=== PATIENT | female | born 1935 | race Caucasian/White ===

== ENCOUNTER 2017-01-07 08:53 | Inpatient (IN) | payer MEDICARE, BC ==
[~2017-01-07] VITALS: Ht 177.8 cm; Wt 98.9 kg
[2017-01-07] VITALS (7 sets, daily range): BP systolic 142–164; BP diastolic 71–80; PULSE 66–73; RESP 16–20; TEMP 97.6–98.2; O2SAT 95–99
[2017-01-07] MEDS ORDERED: SODIUM CHLOR 0.9% 1000 ML INJ 1,000 ML IV SCH (09:32)
[2017-01-07] MEDS ORDERED: KETOROLAC TROMETHAMINE 30 MG/ML (IVP) VIAL IVP ONE (09:45)
[2017-01-07] MEDS ORDERED: ONDANSETRON HCL 4 MG/2 ML VIAL IVP ONE (09:45)
[2017-01-07] MEDS ORDERED: ALUMINUM/MAGNESIUM/SIMETH 30 ML CUP PO ONE (09:45)
[2017-01-07] MEDS ORDERED: SODIUM CHLORIDE 0.9% FLUSH 10 ML FLUSH IV FLUSH PRN (09:45)
[2017-01-07] MEDS ORDERED: MORPHINE SULFATE 4 MG/ML INJ IV PUSH ONE (09:45)
[2017-01-07] MEDS ORDERED: LIDOCAINE VISCOUS 2% SOLN 15 ML UDC PO ONE (09:45)
[2017-01-07 09:51] LABS: AUTOMATED NEUTROPHIL # 5.6 TH/MM3 (1.8-7.7); BASOPHIL # 0.3 TH/MM3 (0-0.2); BASOPHIL % 3.8 % (0.0-2.0); EOSINOPHIL % 0.1 % (0.0-4.0); HEMATOCRIT 39.6 % (35.0-46.0); HEMO FLAGS DIFF FINAL; LYMPH % 14.8 % (9.0-44.0); LYMPHOCYTE # 1.1 TH/MM3 (1.0-4.8); MEAN CELL VOLUME 84.1 FL (80.0-100.0); MEAN CORPUSCULAR HEMOGLOBIN 27.4 PG (27.0-34.0); MEAN CORPUSCULAR HGB CONC 32.6 % (32.0-36.0); MONO % 6.7 % (0.0-8.0); NEUT % 74.6 % (16.0-70.0); PLATELET COUNT 197 TH/MM3 (150-450); RED BLOOD COUNT 4.71 MIL/MM3 (4.00-5.30); RED CELL DISTRIBUTION WIDTH 13.7 % (11.6-17.2); WHITE BLOOD COUNT 7.5 TH/MM3 (4.0-11.0)
[2017-01-07 09:53] LABS: BLOOD, URINE SMALL (NEG); GLUCOSE,URINE NEG (NEG); KETONE, URINE NEG (NEG); NITRITE,URINE NEG (NEG)
--- NOTE | 2017-01-07 10:01 | PD ---
HPI Chief Complaint: Abdominal Pain Time Seen by Provider: 09:09 Travel History International Travel<30 days: No Contact w/Intl Traveler<30days: No Traveled to known affect area: No History of Present Illness HPI 81-year-old female developed abdominal pain at about 9 PM last night. It was first located in the left upper quadrant and radiated to the right upper quadrant. She was unable to sleep. She has the ER. No similar prior pain has occurred. She thinks she may have had some potentially spoiled fish a day ago but no potentially culpable intake since. No fever or vomiting. BM normal. decreased appetite 2/2 pain. Pain is worse with palpation. Diaphoresis accompanied pain inititally. PFSH Past Medical History Medical History: Denies Significant Hx Tetanus Vaccination: Unknown Influenza Vaccination: Yes ?: Not Past Surgical History Appendectomy: Yes Hysterectomy: Yes Social History Alcohol Use: No Tobacco Use: No Substance Use: No Allergies-Medications (Allergen,Severity, Reaction): Coded Allergies: No Known Allergies (Unverified , 01/07/17) Reported Meds & Prescriptions Reported Meds & Active Scripts Active No Active Prescriptions or Reported Medications Review of Systems Except as stated in HPI: all other systems reviewed are Neg Physical Exam Narrative GENERAL: 81 yo F, WNWD, NAD, pleasant SKIN: Focused skin assessment warm/dry. HEAD: Atraumatic. Normocephalic. EYES: Pupils equal and round. No scleral icterus. No injection or drainage. ENT: No nasal bleeding or discharge. Mucous membranes pink and moist. NECK: Trachea midline. No JVD. CARDIOVASCULAR: Regular rate and rhythm. No murmur appreciated. RESPIRATORY: No accessory muscle use. Clear to auscultation. Breath sounds equal bilaterally. GASTROINTESTINAL:Soft. TTP upper abdomen. No rebound TTP. MUSCULOSKELETAL: No obvious deformities. No clubbing. No cyanosis. No edema. NEUROLOGICAL: Awake and alert. No obvious cranial nerve deficits. Motor grossly within normal limits. Normal speech. PSYCHIATRIC: Appropriate mood and affect; insight and judgment normal. Data Data Last Documented VS Vital Signs Date Time Temp Pulse Resp B/P Pulse Ox O2 Delivery O2 Flow Rate FiO2 01/07/17 11:09 66 20 164/80 96 Room Air 01/07/17 09:00 98.2 VS reviewed Orders Complete Blood Count With Diff (01/07/17 09:32) Comprehensive Metabolic Panel (01/07/17 09:32) Lipase (01/07/17 09:32) Urinalysis - C+S If Indicated (01/07/17 09:32) Ct Abd/Pel W Iv Contrast(Rout) (01/07/17 09:32) Iv Access Insert/Monitor (01/07/17 09:32) Ecg Monitoring (01/07/17 09:32) Oximetry (01/07/17 09:32) Morphine Inj (Morphine Inj) (01/07/17 09:45) Ondansetron Inj (Zofran Inj) (01/07/17 09:45) Sodium Chlor 0.9% 1000 Ml Inj (Ns 1000 M (01/07/17 09:32) Sodium Chloride 0.9% Flush (Ns Flush) (01/07/17 09:45) Ketorolac Inj (Toradol Inj) (01/07/17 09:45) Al-Mag Hy-Si 40-40-4 Mg/Ml Liq (Mag-Al P (01/07/17 09:45) Lidocaine 2% Viscous (Xylocaine 2% Visco (01/07/17 09:45) Iodixanol 320 Inj (Rad Ct) (Visipaque 32 (01/07/17 10:36) Piperacil-Tazo 3.375 Gm Premix (Zosyn 3. (01/07/17 11:00) Admit Order (Ed Use Only) (01/07/17 ) Vital Signs (Adult) Q4H (01/07/17 11:14) Diet Npo (01/07/17 Lunch) Activity Oob With Assistance (01/07/17 11:14) ^ Saline Lock (01/07/17 11:14) Notify Dr: Other (01/07/17 11:14) Ondansetron Inj (Zofran Inj) (01/07/17 11:15) Sodium Chloride 0.9% Flush (Ns Flush) (01/07/17 21:00) Sodium Chloride 0.9% Flush (Ns Flush) (01/07/17 11:15) Morphine Inj (Morphine Inj) (01/07/17 11:15) Mri Mrcp W/O Contrast (01/07/17 ) Labs Laboratory Tests Test 01/07/17 01/07/17 09:40 09:45 Urine Color DARK-YELLOW Urine Turbidity SLIGHT Urine pH 6.0 Urine Specific Shushan 1.032 Urine Protein 30 mg/dL Urine Glucose (UA) NEG mg/dL Urine Ketones NEG mg/dL Urine Occult Blood SMALL Urine Nitrite NEG Urine Bilirubin NEG Urine Leukocyte Esterase NEG Urine WBC 0-2 /hpf Urine Squamous Epithelial 0-5 /hpf Cells Urine Bacteria OCC /hpf Urine Mucus MOD /lpf Microscopic Urinalysis Comment CULT NOT INDICATED White Blood Count 7.5 TH/MM3 Red Blood Count 4.71 MIL/MM3 Hemoglobin 12.9 GM/DL Hematocrit 39.6 % Mean Corpuscular Volume 84.1 FL Mean Corpuscular Hemoglobin 27.4 PG Mean Corpuscular Hemoglobin 32.6 % Concent Red Cell Distribution Width 13.7 % Platelet Count 197 TH/MM3 Mean Platelet Volume 10.6 FL Neutrophils (%) (Auto) 74.6 % Lymphocytes (%) (Auto) 14.8 % Monocytes (%) (Auto) 6.7 % Eosinophils (%) (Auto) 0.1 % Basophils (%) (Auto) 3.8 % Neutrophils # (Auto) 5.6 TH/MM3 Lymphocytes # (Auto) 1.1 TH/MM3 Monocytes # (Auto) 0.5 TH/MM3 Eosinophils # (Auto) 0.0 TH/MM3 Basophils # (Auto) 0.3 TH/MM3 CBC Comment DIFF FINAL Differential Comment Sodium Level 139 MEQ/L Potassium Level 4.9 MEQ/L Chloride Level 103 MEQ/L Carbon Dioxide Level 27.5 MEQ/L Anion Gap 9 MEQ/L Blood Urea Nitrogen 22 MG/DL Creatinine 1.30 MG/DL Estimat Glomerular Filtration 40 ML/MIN Rate Random Glucose 115 MG/DL Calcium Level 9.2 MG/DL Total Bilirubin 1.8 MG/DL Aspartate Amino Transf 844 U/L (AST/SGOT) Alanine Aminotransferase 563 U/L (ALT/SGPT) Alkaline Phosphatase 120 U/L Total Protein 7.7 GM/DL Albumin 3.4 GM/DL Lipase 139 U/L [facility] Medical Decision Making Medical Screen Exam Complete: Yes Emergency Medical Condition: Yes Differential Diagnosis Constipation, Gastritis, Acute Cholecystitis, Biliary Colic, Pancreatitis, LING , Hepatitis, Bowel Obstruction, Cystitis, Mesenteric Ischemia, AAA, Appendicitis , Renal Stone/Hydronephrosis, GERD, perforated viscous Narrative Course CBC & BMP Diagram 01/07/17 09:45 T bili 1.8 AST 844 ALT 563 Alk phos 120 Lipase normal Last Impressions Abdomen/Pelvis CT 01/07/17 0932 Signed Impressions: Service Date/Time: Saturday, January 07, 2017 10:26 - CONCLUSION: 1. The gallbladder is moderately distended with thickening of the gallbladder wall and surrounding inflammatory changes in the adjacent mesenteric fat. These findings suggest acute cholecystitis. 2. Mild dilatation of the biliary ducts. The common bile duct does not appear to be dilated. 3. A few scattered diverticula in the sigmoid colon without inflammatory changes. Robbin Rodgers MD 11:00 pt resting comfortably, abdomen soft, pain resolved w morphine 2mg, d/w Dr Garcia for gen surgery, MRCP added, admission to O 11:15 pt resting comfortably, informed of plan, maintenance ivf, zosyn Diagnosis Primary Impression: Cholecystitis Admitting Information Admitting Physician Requests: Admit Scripts No Active Prescriptions or Reported Meds Cortes Dozier MD January 07, 2017 10:01
[2017-01-07 10:07] LABS: CHLORIDE 103 MEQ/L (98-107); SODIUM (NA) 139 MEQ/L (136-145)
[2017-01-07 10:10] LABS: POTASSIUM 4.9 MEQ/L (3.5-5.1)
[2017-01-07 10:10] LABS: URINE COLOR DARK-YELLOW (YELLW/STRAW)
[2017-01-07 10:11] LABS: ANION GAP 9 MEQ/L (5-15); BICARBONATE 27.5 MEQ/L (21.0-32.0); BLOOD UREA NITROGEN 22 MG/DL (7-18)
[2017-01-07 10:12] LABS: MUCUS URINE MOD /lpf (OCC); SQUAMOUS EPITHELIAL CELL URINE 0-5 /hpf (0-5); WBC, URINE 0-2 /hpf (0-5)
[2017-01-07 10:13] LABS: BACTERIA, URINE OCC /hpf; COMMENT (UR) CULT NOT INDICATED; CULTURE IF INDICATED CULT NOT INDICATED
[2017-01-07 10:14] LABS: ALT (GPT) 563 U/L (10-53); AST (GOT) 844 U/L (15-37); GLOMERULAR FILTRATION RATE 40 ML/MIN (>89)
[2017-01-07 10:16] LABS: TOTAL BILIRUBIN ADULT 1.8 MG/DL (0.2-1.0)
[2017-01-07 10:17] LABS: ALKALINE PHOSPHATASE 120 U/L (45-117)
[2017-01-07] MEDS ORDERED: IODIXANOL 320 MG/ML 10 ML VIAL (for Rad CT) IV ONE (10:36)
--- NOTE | 2017-01-07 10:53 | RADHPO ---
EXAM DATE/TIME: 01/07/2017 10:26 [facility] COMPARISON: No previous studies available for comparison. INDICATIONS : Bilateral upper quadrant pain. IV CONTRAST: 50 cc Visipaque (iodixanol) IV ORAL CONTRAST: No oral contrast ingested. RADIATION DOSE: 19.91 CTDIvol (mGy) MEDICAL HISTORY : None SURGICAL HISTORY : Appendectomy. Hysterectomy. ENCOUNTER: Initial ACUITY: 2 days PAIN SCALE: 2/10 LOCATION: Bilateral upper quadrant TECHNIQUE: Volumetric scanning of the abdomen and pelvis was performed. Using automated exposure control and ad justment of the mA and/or kV according to patient size, radiation dose was kept as low as reasonably achievable to obtain optimal diagnostic quality images. FINDINGS: LOWER LUNGS: There is bibasilar atelectasis. The heart size is diffusely enlarged. LIVER: There is a mild dilatation of the biliary ducts. The liver is normal in size. There are some calcifie d granulomas in the liver. The gallbladder is distended. The gallbladder wall is thickened and there appears to be some surrounding inflammatory changes in the mesenteric fat. No definite free fluid is seen. The common bile duct is nondilated at 5 mm. SPLEEN: Normal size without lesion. Multiple splenic granulomas. PANCREAS: Within normal limits. KIDNEYS: Normal in size and shape. There is no mass, stone or hydronephrosis. ADRENAL GLANDS: Within normal limits. VASCULAR: There is no aortic aneurysm. Atherosclerotic changes. BOWEL/MESENTERY: The stomach, small bowel, and colon demonstrate no acute abnormality. There is no free intraperitone al air or fluid. There is stool in the colon. No inflammatory changes. A few small scattered divertic marissa along the sigmoid colon. ABDOMINAL WALL: Within normal limits. RETROPERITONEUM: There is no lymphadenopathy. BLADDER: No wall thickening or mass. REPRODUCTIVE: No pelvic masses. INGUINAL: There is no lymphadenopathy or hernia. MUSCULOSKELETAL: Within normal limits for patient age. CONCLUSION: 1. The gallbladder is moderately distended with thickening of the gallbladder wall and surrounding in flammatory changes in the adjacent mesenteric fat. These findings suggest acute cholecystitis. 2. Mild dilatation of the biliary ducts. The common bile duct does not appear to be dilated. 3. A few scattered diverticula in the sigmoid colon without inflammatory changes. Robbin Rodgers MD on January 07, 2017 at 10:45 Board Certified Radiologist. This report was verified electronically.
[2017-01-07] MEDS ORDERED: PIPERACIL-TAZO 3.375 GM PREMIX 50 ML IV ONE ×2 (11:00→19:15)
[2017-01-07] MEDS ORDERED: ONDANSETRON HCL 4 MG/2 ML VIAL IV PRN (11:15)
[2017-01-07] MEDS ORDERED: SODIUM CHLORIDE 0.9% FLUSH 10 ML FLUSH IVF PRN (11:15)
[2017-01-07] MEDS: MORPHINE SULFATE 4 MG/ML INJ IV PUSH PRN ×2 (12:58→21:06)
--- NOTE | 2017-01-07 14:35 | RADHPO ---
EXAM DATE/TIME: 01/07/2017 13:20 [facility] COMPARISON: CT ABDOMEN & PELVIS W CONTRAST, January 07, 2017, 10:26. INDICATIONS : Obstruction. MEDICAL HISTORY : Hypercholesterolemia. SURGICAL HISTORY : Hysterectomy. ENCOUNTER: Initial ACUITY: 1 day PAIN SCORE: 9/10 LOCATION: Right upper quadrant TECHNIQUE: Multiplanar, multisequence magnetic resonance imaging of the abdomen was performed. High-resolution 3D dataset was utilized to reconstruct maximum-intensity projection (MIP) images. FINDINGS: INTRAHEPATIC BILE DUCTS: Within normal limits. No significant anatomical variant is present. EXTRAHEPATIC BILE DUCTS: The common bile duct measures 6 mm. No stone or filling defect is identified. GALLBLADDER: There are multiple stones in the gallbladder. There is thickening of gallbladder wall. The gallbladde r is distended. LIVER: Normal size and signal intensity. No concerning liver lesion is identified on this non-contrast exam. PANCREAS: The main pancreatic duct is normal in size. There is no significant anatomical variant. Signal inte nsity is within normal limits. No mass is visualized on this non-contrast exam. CONCLUSION: The gallbladder is distended and there are multiple stones in the gallbladder. There is thickening of the gallbladder wall. No definite biliary tract obstruction is seen. Robbin Rodgers MD on January 07, 2017 at 14:29 Board Certified Radiologist. This report was verified electronically.
[2017-01-07] MEDS ORDERED: SODIUM CHLOR 0.45% 1000 ML INJ 1,000 ML IV ONE (19:15)
--- NOTE | 2017-01-07 20:47 | MH ---
cc: DARIUS CARDENAS M.D. DATE OF ADMISSION 01/07/2017 REASON FOR ADMISSION Acute cholecystitis. HISTORY OF PRESENT ILLNESS The patient is a very pleasant 81-year-old female who developed increasingly severe abdominal pain yesterday evening. This was located in both upper quadrants and is now settled mostly in the right upper quadrant. The patient had some vomiting today but has had no previous pain of this type. She has had no change in her bowel habits. She did report some sweating with the pain initially. PAST MEDICAL HISTORY The patient has previous history of: 1. Appendectomy. 2. And hysterectomy many years ago with a Pfannenstiel incision. SOCIAL HISTORY She does not drink, smoke or use other substances. ALLERGIES She has no known allergies. MEDICATIONS Takes no medications other than a baby aspirin a day. REVIEW OF SYSTEMS Otherwise negative except as indicated above. PHYSICAL EXAMINATION GENERAL: Physical exam reveals an obese female in no acute distress. VITAL SIGNS: BP 145/79, pulse 66, respirations 18, temperature 97.6, 97% saturation on room air. HEENT: Sclerae anicteric. Pupils reactive. NECK: Supple. CHEST: Clear to auscultation. HEART: Cardiac exam reveals regular rate and rhythm. ABDOMEN: Soft with tenderness in the right upper quadrant and epigastrium. There is minimal tenderness in the left upper quadrant along the costal margin. There are no hernias noted. EXTREMITIES: Pulses are present. NEUROLOGIC: Cranial nerves II-XII grossly intact. Sensory and motor exams grossly intact. LABORATORY FINDINGS WBCs are normal at 7.5, hemoglobin is normal at 12.9. Chemistries demonstrate elevated BUN and creatinine at 22 and 1.3. Total bilirubin is elevated at 1.8. AST 844, ALT 563, alkaline phosphatase 128. Lipase is normal at 139. IMAGING Significant for CT of the abdomen and pelvis which demonstrates moderately distended gallbladder with thickened wall and surrounding inflammatory changes in the adjacent mesenteric fat. There is mild dilatation of the biliary ducts but the common bile duct did not appear dilated. The patient has undergone MRCP since this morning which demonstrates multiple stones in the gallbladder but no definite biliary tract obstruction is seen. Extrahepatic bile duct measures 6 mm with no stone or filling defect identified. ASSESSMENT Acute cholecystitis with elevated liver function test. No common duct stone likely. PLAN Will repeat LFTs in the morning. Will hydrate the patient tonight. I have discussed risks of surgery with the patient to undergo laparoscopic cholecystectomy tomorrow. I have discussed risks including but not limited to bleeding, infection, bile duct injury, bowel injury, possible need for ERCP, drainage, and reoperation. I have discussed remedies consequences, alternatives, convalescence; she vocalizes understanding and agrees to proceed. MD SHANNAN Shelby/NEMO /7:25 PM /8:37 PM
[2017-01-07] MEDS: SODIUM CHLORIDE 0.9% FLUSH 10 ML FLUSH IV FLUSH SCH (21:00)
[2017-01-07] MEDS: DEXT 5%-NACL 0.45% 1000 ML INJ 1,000 ML IV SCH (21:07)
[2017-01-08] VITALS: BP 139/74; PULSE 73; RESP 20; TEMP 98.3; O2SAT 92
[2017-01-08] MEDS: MORPHINE SULFATE 4 MG/ML INJ IV PUSH PRN (00:04)
[2017-01-08] MEDS: DEXT 5%-NACL 0.45% 1000 ML INJ 1,000 ML IV SCH ×2 (05:09→17:22)
[2017-01-08 07:38] LABS: INDIRECT BILIRUBIN 1.2 MG/DL (0.0-0.8); TOTAL BILIRUBIN ADULT 4.3 MG/DL (0.2-1.0)
[2017-01-08 08:00] VITALS: BP 133/65; PULSE 76; RESP 20; TEMP 99.3; O2SAT 92
[2017-01-08] MEDS: SODIUM CHLORIDE 0.9% FLUSH 10 ML FLUSH IV FLUSH SCH ×2 (08:31→21:00)
[2017-01-08] MEDS ORDERED: BUPIVACAINE/EPINEPHRINE 0.25% PF 30 ML VIAL ONE (09:24)
[2017-01-08] MEDS ORDERED: PIPERACIL-TAZO 3.375 GM PREMIX 50 ML IV SCH (09:30)
[2017-01-08] MEDS ORDERED: PROPOFOL 200 MG/20 ML AMP IV ONE (10:09)
[2017-01-08] MEDS ORDERED: ONDANSETRON HCL 4 MG/2 ML VIAL IV PUSH ONE (10:09)
[2017-01-08] MEDS ORDERED: NEOSTIGMINE 3 MG/3 ML SYR IV ONE (10:09)
[2017-01-08] MEDS ORDERED: fentaNYL CITRATE 250 MCG/5 ML AMP IV ONE (10:33)
[2017-01-08] MEDS ORDERED: GLUCAGON 1 MG/ML VIAL OTHER ONE (10:34)
[2017-01-08] MEDS ORDERED: IOHEXOL 350 MG/ML 50 ML BTL (for RAD DIAG) ONE (10:39)
--- NOTE | 2017-01-08 11:39 | HHI.PR ---
cc: Mp Garcia MD Immediate Post Op Note Procedure Date: January 08, 2017 Pre Op Diagnosis: Acute cholecystitis Post Op Diagnosis: Same, with choledocholithiasis Surgeon: Mp Garcia [employer] Professor(s): Domonique Trejo CST Procedure: Laparoscopic cholecystectomy with intraoperative cholangiogram with intraoperative use of fluoroscopy Findings: Non-filling of duodenum; no filling defects noted Complications: None Specimen(s) removed: Gallbladder and stones to pathology Estimated blood loss: 50ml Anesthesia: General Drains: None IVF (500 ml) Patient to: PACU Patient Condition: Good Date/Time of Procedure: SEE SURGICAL CARE RECORD Mp Garcia MD January 08, 2017 11:39
[2017-01-08] MEDS ORDERED: ACETAMINOPHEN/HYDROcodone 325 MG/7.5 MG TAB PO PRN ×2 (12:00)
--- NOTE | 2017-01-08 12:25 | RADHPO ---
EXAM DATE/TIME: 01/08/2017 11:03 [facility] COMPARISON: No previous studies available for comparison. INDICATIONS : Cholangiogram. Gall bladder removal. FLUORO TIME: 1.45 minutes IMAGE COUNT: 21 MEDICAL HISTORY : None. SURGICAL HISTORY : None. ENCOUNTER: Initial ACUITY: 1 day PAIN SCORE: Non-responsive. LOCATION: Bilateral Abdomen. PROCEDURE: CHOLANGIOGRAM, OPERATIVE 1. Intraoperative cholangiogram. In the operating room, the cystic duct stump was injected and radiographs obtained. The examination demonstrates contrast in the common bile duct without evidence of stone. There is no spill into the duodenum. CONCLUSION: No stone identified as above Yoan Cisneros MD on January 08, 2017 at 12:21 Board Certified Radiologist. This report was verified electronically.
[2017-01-08] MEDS ORDERED: DO NOT ADM ANY ANTICOAGULANT DRUGS PRN (14:15)
[2017-01-08 16:00] VITALS: BP 120/67; PULSE 63; RESP 20; TEMP 96.8; O2SAT 100
--- NOTE | 2017-01-08 17:30 | MP ---
cc: DARIUS GARCIA DATE OF SURGERY 01/08/17 PROCEDURE Laparoscopic cholecystectomy with intraoperative cholangiogram with intraoperative use of fluoroscopy. PREOPERATIVE DIAGNOSIS Acute cholecystitis. POSTOPERATIVE DIAGNOSIS Acute cholecystitis with possible choledocholithiasis. ANESTHESIA General endotracheal SURGEON Chay Garcia MD ESTIMATED BLOOD LOSS 50 mL FLUIDS 500 mL crystalloid COMPLICATIONS None. DRAINS None. SPECIMEN Gallbladder and stones to pathology. PROCEDURE IN DETAIL The patient was taken to the operating room and placed on the operating table in the supine position. After an adequate level of general endotracheal anesthesia was achieved, the abdomen was prepped and draped in the usual fashion. A timeout was taken confirming the correct patient, site and procedure to be performed. Skin and subcutaneous tissue was infiltrated with local anesthetic and an incision made in the umbilicus and carried through the fascia sharply. The peritoneal cavity was directly visualized. A 12 mm balloon trocar was inserted and balloon inflated. The abdomen was insufflated. The upper abdomen was visualized and three 5 mm trocars were placed with the first to the right of the falciform ligament and second and third in the right subcostal region. All entered the abdominal cavity under direct vision uneventfully. The gallbladder was somewhat distended and 120 mL of cloudy, brownish fluid was aspirated. The gallbladder was then able to be grasped and retracted upward. Omental adhesions were taken down off of the gallbladder with electrocautery and blunt dissection. When this had been completed, the cystic duct infundibular junction and cystic artery were both circumferentially dissected. The cystic artery was doubly clipped proximally, single clipped distally and divided. The cystic duct was further circumferentially dissected and as the patient had elevated liver function tests that were still elevated, cholangiogram was obtained. An [employer] cholangiocatheter was brought in via separate stab incision and a small cystic ductotomy was made. The catheter was placed into the cystic duct and secured with a hemoclip. Multiple runs were taken with full strength contrast. There were no filling defects noted within the common duct, but there was no backfilling of the common hepatic duct and no passage of contrast into the duodenum. As a result, 1 mg of Glucagon was given and cholangiogram was taken again. As no contrast passed into the duodenum, the procedure was terminated and the cholangiocatheter removed. The cystic duct was divided and then secured with an Endo loop. A 5 mm clip was then placed more distal to this to further secure the cystic duct stump. The gallbladder was then dissected off of the liver bed and placed into an EndoCatch device. It was removed via the umbilical port while observing through the upper 5 mm trocar site. The upper abdomen was then once again revisualized through the umbilical port and liver bed, cystic artery stump and cystic duct stump were all seen to be clean and dry. All irrigation was aspirated from the abdominal cavity and insufflation discontinued. The upper abdominal trocars were removed under direct vision. No bleeding was noted from the trocar sites. The laparoscope and umbilical port were then removed. The fascia was closed in the umbilicus with 0 Vicryl suture in an interrupted fashion. When that had been completed, the remaining local anesthetic was injected into the trocar sites. The trocar sites were then closed with 4-0 Vicryl in an interrupted buried fashion. All trocar sites and the cholangiogram site were dressed with Steri-Strips. The patient was extubated and taken back to the recovery room in stable condition. Sponge and needle counts were reported to be correct. Call was placed to gastroenterology group for consideration for ERCP depending on additional lab work. The patient tolerated the procedure well. MD SHANNAN Shelby/ /12:50 PM /7:24 AM MTDAnh
[2017-01-08 18:14] VITALS: O2SAT 92
[2017-01-08 20:00] VITALS: BP 107/58; PULSE 68; RESP 18; TEMP 97.3; O2SAT 93
[2017-01-08 20:42] VITALS: O2SAT 93
--- NOTE | 2017-01-08 21:11 | PD.CONS ---
HPI History of Present Illness This is a 81 year old female who is status post laparoscopic cholecystectomy earlier today she is sitting in chair and she is doing very well she presented with complaints of upper abdominal pain that started suddenly and on admission through the ED she was noted to have abnormal gallbladder on CT and elevated liver function tests which prompted an MRCP that was unremarkable and so the patient underwent laparoscopic cholecystectomy with IOC the IOC was somewhat ambiguous not showing any filling of the duodenum but it is apparent that her liver function tests are on the decline while her bilirubin had gone up she is currently comfortable in bed and has no complaints and feels that she is getting stronger and her pain is much improved [facility] Past Medical History Previously healthy Past Surgical History 1. Appendectomy. 2. And hysterectomy many years ago with a Pfannenstiel incision. Coded Allergies: No Known Allergies (Unverified , 01/07/17) Medications Baby aspirin Family History Noncontributory Social History Negative Review of Systems ROS Review of systems Patient denies any headache dizziness blurry vision, denies any chest pain shortness of breath cough fever chills, Denies any palpitations or fatigue denies any polyuria dysuria hematuria, denies any numbness tingling or weakness, denies any skin rash pruritus or jaundice, denies any easy bruising or bleeding tendency, denies any recent change in mood GI Exam Vitals I&O Vital Signs Date Time Temp Pulse Resp B/P Pulse Ox O2 Delivery O2 Flow Rate FiO2 01/08/17 20:42 93 21 01/08/17 20:00 97.3 68 18 107/58 93 01/08/17 18:14 92 21 01/08/17 16:00 96.8 63 20 120/67 100 01/08/17 12:44 98.2 66 18 121/65 93 Nasal Cannula 3 01/08/17 12:35 66 16 131/63 94 Nasal Cannula 3 01/08/17 12:20 66 16 144/66 96 Simple Mask 7 Face Tent 01/08/17 12:05 74 17 139/66 95 Simple Mask 7 Face Tent 01/08/17 11:50 98.2 100 18 159/82 94 Face Tent 7 01/08/17 08:31 18 01/08/17 08:00 99.3 76 20 133/65 92 01/08/17 00:00 98.3 73 20 139/74 92 I/O 01/07/17 01/07/17 01/07/17 01/08/17 01/08/17 01/08/17 07:00 15:00 23:00 07:00 15:00 23:00 Intake Total 1100 ml 0 ml 800 ml 890 ml Output Total 50 ml Balance 1100 ml 0 ml 800 ml 840 ml Intake Oral 0 ml 390 ml IV Total 1100 ml 800 ml Other 500 ml Output Estimated Blood Loss 50 ml # Voids 4 4 # Bowel Movements 0 0 Imaging Last Impressions Cholangiogram 01/08/17 0000 Signed Impressions: Service Date/Time: Sunday, January 08, 2017 11:03 - CONCLUSION: No stone identified as above Yoan Cisneros MD Abdomen/Pelvis CT 01/07/17 0932 Signed Impressions: Service Date/Time: Saturday, January 07, 2017 10:26 - CONCLUSION: 1. The gallbladder is moderately distended with thickening of the gallbladder wall and surrounding inflammatory changes in the adjacent mesenteric fat. These findings suggest acute cholecystitis. 2. Mild dilatation of the biliary ducts. The common bile duct does not appear to be dilated. 3. A few scattered diverticula in the sigmoid colon without inflammatory changes. Robbin Rodgers MD Cholangiopancreatography MRI 01/07/17 0000 Signed Impressions: Service Date/Time: Saturday, January 07, 2017 13:20 - CONCLUSION: The gallbladder is distended and there are multiple stones in the gallbladder. There is thickening of the gallbladder wall. No definite biliary tract obstruction is seen. Robbin Rodgers MD Laboratory Test 01/08/17 06:10 Total Bilirubin 4.3 MG/DL Direct Bilirubin 3.1 MG/DL Indirect Bilirubin 1.2 MG/DL Aspartate Amino Transf 376 U/L (AST/SGOT) Alanine Aminotransferase 439 U/L (ALT/SGPT) Alkaline Phosphatase 131 U/L Total Protein 6.6 GM/DL Albumin 2.8 GM/DL Physical Examination HEENT: Pupils round and reactive to light; normocephalic; atraumatic; mildly jaundiced. Throat is clear. NECK: Neck is supple, no JVD, no lymphadenopathy. CHEST: Chest is clear to auscultation and percussion. CARDIAC: Regular rate and rhythm with no murmur gallop or rubs. ABDOMEN: Soft, nondistended, nontender; no hepatosplenomegaly; bowel sounds are present in all four quadrants. EXTREMITIES: No clubbing, cyanosis, or edema. SKIN: Normal; no rash LABEL MAKER: No focal deficits; alert and oriented times three. Assessment and Plan Plan Acute cholecystitis status post laparoscopic cholecystectomy Elevated liver function tests etiology unclear as far as having biliary ductal stones Agree with current supportive care Monitor labs we should see a decline in her bilirubin over the next 1-2 days but obviously if there is any sharp increase we may need to pursue an ERCP Further recommendations shall depend on her hospital course Wing Ferro MD January 08, 2017 21:11
[2017-01-09] VITALS (9 sets, daily range): BP systolic 102–122; BP diastolic 56–86; PULSE 62–116; RESP 18–20; TEMP 97.4–98.3; O2SAT 84–95
[2017-01-09] MEDS: DEXT 5%-NACL 0.45% 1000 ML INJ 1,000 ML IV SCH (06:26)
[2017-01-09 06:50] LABS: HEMATOCRIT 35.3 % (35.0-46.0); MEAN CELL VOLUME 85.1 FL (80.0-100.0); MEAN CORPUSCULAR HEMOGLOBIN 27.6 PG (27.0-34.0); MEAN CORPUSCULAR HGB CONC 32.4 % (32.0-36.0); PLATELET COUNT 153 TH/MM3 (150-450); RED BLOOD COUNT 4.15 MIL/MM3 (4.00-5.30); RED CELL DISTRIBUTION WIDTH 14.2 % (11.6-17.2); REVIEW FLAG FINAL; WHITE BLOOD COUNT 9.6 TH/MM3 (4.0-11.0)
[2017-01-09 07:06] LABS: BICARBONATE 28.3 MEQ/L (21.0-32.0); INDIRECT BILIRUBIN 1.1 MG/DL (0.0-0.8); POTASSIUM 3.8 MEQ/L (3.5-5.1); TOTAL BILIRUBIN ADULT 4.4 MG/DL (0.2-1.0)
--- NOTE | 2017-01-09 08:06 | HHI.GIFU ---
Subjective Remarks Patient comfortable in bed feels a little bloated and has not passed any gas denies any nausea denies any severe pain Objective Vitals I&O Vital Signs Date Time Temp Pulse Resp B/P Pulse Ox O2 Delivery O2 Flow Rate FiO2 01/09/17 04:00 97.4 109 18 122/86 94 01/09/17 00:00 98.1 62 18 116/63 94 01/08/17 20:42 93 21 01/08/17 20:00 97.3 68 18 107/58 93 01/08/17 18:14 92 21 01/08/17 16:00 96.8 63 20 120/67 100 01/08/17 12:44 98.2 66 18 121/65 93 Nasal Cannula 3 01/08/17 12:35 66 16 131/63 94 Nasal Cannula 3 01/08/17 12:20 66 16 144/66 96 Simple Mask 7 Face Tent 01/08/17 12:05 74 17 139/66 95 Simple Mask 7 Face Tent 01/08/17 11:50 98.2 100 18 159/82 94 Face Tent 7 01/08/17 08:31 18 I/O 01/08/17 01/08/17 01/08/17 01/09/17 01/09/17 01/09/17 07:00 15:00 23:00 07:00 15:00 23:00 Intake Total 800 ml 890 ml 575 ml 1140 ml Output Total 50 ml 200 ml 1100 ml Balance 800 ml 840 ml 375 ml 40 ml Intake Oral 390 ml 575 ml 240 ml IV Total 800 ml 900 ml Other 500 ml Output Urine Total 200 ml 1100 ml Estimated Blood Loss 50 ml # Voids 4 2 1 # Bowel Movements 0 Laboratory Laboratory Tests Test 01/09/17 05:55 White Blood Count 9.6 Red Blood Count 4.15 Hemoglobin 11.4 Hematocrit 35.3 Mean Corpuscular Volume 85.1 Mean Corpuscular Hemoglobin 27.6 Mean Corpuscular Hemoglobin 32.4 Concent Red Cell Distribution Width 14.2 Platelet Count 153 Mean Platelet Volume 11.2 Sodium Level 141 Potassium Level 3.8 Chloride Level 107 Carbon Dioxide Level 28.3 Anion Gap 6 Blood Urea Nitrogen 13 Creatinine 1.10 Estimat Glomerular Filtration 48 Rate Random Glucose 101 Calcium Level 8.5 Total Bilirubin 4.4 Direct Bilirubin 3.3 Indirect Bilirubin 1.1 Aspartate Amino Transf 203 (AST/SGOT) Alanine Aminotransferase 300 (ALT/SGPT) Alkaline Phosphatase 120 Total Protein 6.2 Albumin 2.6 Imaging Last 48 hours Impressions Cholangiogram 01/08/17 0000 Signed Impressions: Service Date/Time: Sunday, January 08, 2017 11:03 - CONCLUSION: No stone identified as above Yoan Cisneros MD Abdomen/Pelvis CT 01/07/17 0932 Signed Impressions: Service Date/Time: Saturday, January 07, 2017 10:26 - CONCLUSION: 1. The gallbladder is moderately distended with thickening of the gallbladder wall and surrounding inflammatory changes in the adjacent mesenteric fat. These findings suggest acute cholecystitis. 2. Mild dilatation of the biliary ducts. The common bile duct does not appear to be dilated. 3. A few scattered diverticula in the sigmoid colon without inflammatory changes. Robbin Rodgers MD Physical Exam HEENT: normocephalic; atraumatic; jaundice. Throat is clear. NECK: Neck is supple, CHEST: Chest is clear to auscultation and percussion. CARDIAC: Regular rate and rhythm with no murmur gallop or rubs. ABDOMEN: Soft, mildly distended, nontender; no hepatosplenomegaly; bowel sounds are present in all four quadrants. EXTREMITIES: No clubbing, cyanosis, or edema. SKIN: Normal; no rash; jaundice. REACTOR OPERATOR: No focal deficits; alert and oriented times three. Assessment and Plan Plan Acute cholecystitis status post laparoscopic cholecystectomy Elevated liver function tests etiology unclear as far as having biliary ductal stones appeared to be trending down but the bilirubin continues to lag behind at this point Agree with current supportive care Monitor labs we should see a decline in her bilirubin over the next 1-2 days but obviously if there is any sharp increase we may need to pursue an ERCP Further recommendations shall depend on her hospital course Wing Ferro MD January 09, 2017 08:06
[2017-01-09] MEDS: SODIUM CHLORIDE 0.9% FLUSH 10 ML FLUSH IV FLUSH SCH ×2 (09:00→21:00)
--- NOTE | 2017-01-09 11:18 | EKG ---
Date Performed: 01/08/2017 Time Performed: 09:34:20 PTAGE: 81 years EKG: Sinus arrhythmia. Short OH interval Borderline ECG NO PREVIOUS TRACING DOCTOR: Patrick Johnson Interpretating Date/Time 01/09/2017 11:16:02
[2017-01-09] MEDS ORDERED: HYDR-3288 PO (20:01)
--- NOTE | 2017-01-09 20:04 | HHI.PR ---
Subjective Subjective Notes Feels tired, but not much abdominal pain. No appetite. Objective Vitals/I&O Vital Signs Date Time Temp Pulse Resp B/P Pulse Ox O2 Delivery O2 Flow Rate FiO2 01/09/17 16:11 98.1 102 18 115/68 92 01/09/17 08:00 21 01/08/17 12:44 Nasal Cannula 3 Labs Laboratory Tests Test 01/09/17 05:55 White Blood Count 9.6 Red Blood Count 4.15 Hemoglobin 11.4 Hematocrit 35.3 Mean Corpuscular Volume 85.1 Mean Corpuscular Hemoglobin 27.6 Mean Corpuscular Hemoglobin 32.4 Concent Red Cell Distribution Width 14.2 Platelet Count 153 Mean Platelet Volume 11.2 Sodium Level 141 Potassium Level 3.8 Chloride Level 107 Carbon Dioxide Level 28.3 Anion Gap 6 Blood Urea Nitrogen 13 Creatinine 1.10 Estimat Glomerular Filtration 48 Rate Random Glucose 101 Calcium Level 8.5 Total Bilirubin 4.4 Direct Bilirubin 3.3 Indirect Bilirubin 1.1 Aspartate Amino Transf 203 (AST/SGOT) Alanine Aminotransferase 300 (ALT/SGPT) Alkaline Phosphatase 120 Total Protein 6.2 Albumin 2.6 Lungs: Clear Abdomen: Non-distended Narrative Exam Steristrips dry and intact; no erythema A/P Assessment and Plan POD #1 Lap cholecystectomy with IOC; elevated Bilirubin, but other LFT's decreasing Appreciate Dr. Ferro's input. Agree with holding on study for now. Repeat labs ordered for am; if bilirubin decreasing, will discharge home. F/U my office one week. Mp Garcia MD January 09, 2017 20:04
--- NOTE | 2017-01-09 20:06 | HHI.DS ---
Discharge Summary Admission Date January 07, 2017 at 11:16 Admitting Diagnosis Cholecystitis Brief History Admitted with acute cholecystitis. MRCP did not show any evidence CBD stones/ defects. CBC/BMP: 01/09/17 0555 01/09/17 0555 Significant Findings Laboratory Tests Test 01/07/17 01/07/17 01/08/17 01/09/17 09:40 09:45 06:10 05:55 Urine Color DARK-YELLOW (YELLW/STRAW) Urine Protein 30 mg/dL (NEG-TRACE) Urine Occult Blood SMALL (NEG) Urine Bacteria OCC /hpf (NONE) Urine Mucus MOD /lpf (OCC) Neutrophils (%) (Auto) 74.6 % (16.0-70.0) Basophils (%) (Auto) 3.8 % (0.0-2.0) Basophils # (Auto) 0.3 TH/MM3 (0-0.2) Blood Urea Nitrogen 22 MG/DL (7-18) Creatinine 1.30 MG/DL 1.10 MG/DL (0.50-1.00) (0.50-1.00) Estimat Glomerular Filtration 40 ML/MIN (>89) 48 ML/MIN (>89) Rate Random Glucose 115 MG/DL (74-106) Total Bilirubin 1.8 MG/DL 4.3 MG/DL 4.4 MG/DL (0.2-1.0) (0.2-1.0) (0.2-1.0) Aspartate Amino Transf 844 U/L (15-37) 376 U/L (15-37) 203 U/L (15-37) (AST/SGOT) Alanine Aminotransferase 563 U/L (10-53) 439 U/L (10-53) 300 U/L (10-53) (ALT/SGPT) Alkaline Phosphatase 120 U/L 131 U/L 120 U/L (45-117) (45-117) (45-117) Direct Bilirubin 3.1 MG/DL 3.3 MG/DL (0.0-0.2) (0.0-0.2) Indirect Bilirubin 1.2 MG/DL 1.1 MG/DL (0.0-0.8) (0.0-0.8) Albumin 2.8 GM/DL 2.6 GM/DL (3.4-5.0) (3.4-5.0) Hemoglobin 11.4 GM/DL (11.6-15.3) Mean Platelet Volume 11.2 FL (7.0-11.0) Total Protein 6.2 GM/DL (6.4-8.2) PE at Discharge Steristrips dry and intact; no erythema Hospital Course Pt. underwent lap christian with IOC 01/08; duodenum did not fill and bilirubin increased. GI consulted; awaiting repeat labs. Bilirubin continued to increase and pt. had Atrial fibrillation Controlled with cardiazem drip; ERCP and stent placement 01/11. Pt Condition on Discharge: Good Discharge Disposition: Discharge Home Mp Garcia MD January 09, 2017 20:06
[2017-01-10] VITALS (16 sets, daily range): BP systolic 123–141; BP diastolic 64–89; PULSE 78–133; RESP 18–22; TEMP 96.6–98.1; O2SAT 93–99
[2017-01-10] MEDS: DEXT 5%-NACL 0.45% 1000 ML INJ 1,000 ML IV SCH ×2 (05:52→21:46)
[2017-01-10] MEDS ORDERED: SODIUM CHLORID 0.9% 500 ML INJ 500 ML IV ONE (06:00)
[2017-01-10 07:38] LABS: CHLORIDE 106 MEQ/L (98-107); POTASSIUM 3.5 MEQ/L (3.5-5.1); SODIUM (NA) 142 MEQ/L (136-145)
[2017-01-10 07:40] LABS: BASOPHIL # 0.1 TH/MM3 (0-0.2); BASOPHIL % 1.2 % (0.0-2.0); EOSINOPHIL # 0.1 TH/MM3 (0-0.4); EOSINOPHIL % 1.7 % (0.0-4.0); HEMATOCRIT 36.5 % (35.0-46.0); HEMO FLAGS DIFF FINAL; LYMPH % 21.6 % (9.0-44.0); LYMPHOCYTE # 1.4 TH/MM3 (1.0-4.8); MEAN CELL VOLUME 83.9 FL (80.0-100.0); MEAN CORPUSCULAR HEMOGLOBIN 27.2 PG (27.0-34.0); MEAN CORPUSCULAR HGB CONC 32.4 % (32.0-36.0); MONO % 10.8 % (0.0-8.0); NEUT % 64.7 % (16.0-70.0); PLATELET COUNT 159 TH/MM3 (150-450); RED BLOOD COUNT 4.36 MIL/MM3 (4.00-5.30); WHITE BLOOD COUNT 6.3 TH/MM3 (4.0-11.0)
[2017-01-10 07:42] LABS: ANION GAP 7 MEQ/L (5-15); BICARBONATE 28.8 MEQ/L (21.0-32.0); BLOOD UREA NITROGEN 10 MG/DL (7-18)
[2017-01-10 07:44] LABS: ALT (GPT) 226 U/L (10-53)
[2017-01-10 07:45] LABS: AST (GOT) 115 U/L (15-37); GLOMERULAR FILTRATION RATE 53 ML/MIN (>89)
[2017-01-10 07:46] LABS: TOTAL BILIRUBIN ADULT 4.8 MG/DL (0.2-1.0)
[2017-01-10 07:48] LABS: ALKALINE PHOSPHATASE 142 U/L (45-117)
--- NOTE | 2017-01-10 09:37 | HHI.PR ---
Subjective Subjective Notes Resting in bed at bedside Objective Vitals/I&O Vital Signs Date Time Temp Pulse Resp B/P Pulse Ox O2 Delivery O2 Flow Rate FiO2 01/10/17 08:32 96.6 118 18 123/64 93 01/10/17 00:55 Nasal Cannula 2.00 01/09/17 20:40 21 Labs Laboratory Tests Test 01/10/17 01/10/17 05:23 05:25 Sodium Level 142 Potassium Level 3.5 Chloride Level 106 Carbon Dioxide Level 28.8 Anion Gap 7 Blood Urea Nitrogen 10 Creatinine 1.00 Estimat Glomerular Filtration 53 Rate Random Glucose 90 Calcium Level 8.0 Total Bilirubin 4.8 Aspartate Amino Transf 115 (AST/SGOT) Alanine Aminotransferase 226 (ALT/SGPT) Alkaline Phosphatase 142 Total Protein 5.9 Albumin 2.4 White Blood Count 6.3 Red Blood Count 4.36 Hemoglobin 11.9 Hematocrit 36.5 Mean Corpuscular Volume 83.9 Mean Corpuscular Hemoglobin 27.2 Mean Corpuscular Hemoglobin 32.4 Concent Red Cell Distribution Width 14.0 Platelet Count 159 Mean Platelet Volume 11.1 Neutrophils (%) (Auto) 64.7 Lymphocytes (%) (Auto) 21.6 Monocytes (%) (Auto) 10.8 Eosinophils (%) (Auto) 1.7 Basophils (%) (Auto) 1.2 Neutrophils # (Auto) 4.0 Lymphocytes # (Auto) 1.4 Monocytes # (Auto) 0.7 Eosinophils # (Auto) 0.1 Basophils # (Auto) 0.1 CBC Comment DIFF FINAL Differential Comment Cardiovascular: Regular Lungs: Clear Abdomen: Other (minimally distended; lap sites c/d/i) Extremities: No edema A/P Assessment and Plan 81 year old female s/p lap christian with increasing bilirubin -T-bili 4.8 -Tachycardic overnight; 1 L bolus given -NPO -Continue fluids -Added Zosyn -Needs to transfer to [facility] for ERCP -CM consult - at bedside; updated on plan of care -Discussed with Dr. Garcia Attending Note - Dr. Garcia Events noted; A-fib under control Cardiology ok'd pt to undergo ERCP tomorrow Will await endoscopy results Likely d/c Friday 01/12 The exam, history, and the medical decision-making described in the above note were completed with the assistance of the mid-level provider. I reviewed and agree with the findings presented. I attest that I had a [id number] encounter with the patient on the same day, and personally performed and documented my assessment and findings in the medical record. Anita Kahn January 10, 2017 09:37 Mp Garcia MD January 10, 2017 22:04
[2017-01-10] MEDS: PIPERACIL-TAZO 3.375 GM PREMIX 50 ML IV SCH ×2 (10:52→18:47)
[2017-01-10] MEDS: SODIUM CHLORIDE 0.9% FLUSH 10 ML FLUSH IV FLUSH SCH ×2 (10:53→20:53)
--- NOTE | 2017-01-10 12:08 | HHI.GIFU ---
Subjective Remarks patient is doing ok, minimal abdominal pain(mostly post surgical Objective Vitals I&O Vital Signs Date Time Temp Pulse Resp B/P Pulse Ox O2 Delivery O2 Flow Rate FiO2 01/10/17 08:32 96.6 118 18 123/64 93 01/10/17 04:13 124 20 130/85 94 01/10/17 04:00 97.8 01/10/17 00:55 96 Nasal Cannula 2.00 01/10/17 00:40 98 Nasal Cannula 3.00 01/10/17 00:25 133 20 141/89 99 01/09/17 21:03 93 Nasal Cannula 5.00 01/09/17 20:40 84 21 01/09/17 20:00 97.9 113 20 102/56 93 01/09/17 16:11 98.1 102 18 115/68 92 01/09/17 12:59 97.6 116 18 117/62 92 I/O 01/09/17 01/09/17 01/09/17 01/10/17 01/10/17 01/10/17 06:59 14:59 22:59 06:59 14:59 22:59 Intake Total 1140 ml 1912 ml 1090 ml Output Total 1100 ml 500 ml 2000 ml Balance 40 ml 1412 ml -910 ml Intake Oral 240 ml 1280 ml 240 ml IV Total 900 ml 632 ml 850 ml Output Urine Total 1100 ml 500 ml 2000 ml # Voids 1 1 # Bowel Movements 0 0 Laboratory Laboratory Tests Test 01/10/17 01/10/17 05:23 05:25 Sodium Level 142 Potassium Level 3.5 Chloride Level 106 Carbon Dioxide Level 28.8 Anion Gap 7 Blood Urea Nitrogen 10 Creatinine 1.00 Estimat Glomerular Filtration 53 Rate Random Glucose 90 Calcium Level 8.0 Total Bilirubin 4.8 Aspartate Amino Transf 115 (AST/SGOT) Alanine Aminotransferase 226 (ALT/SGPT) Alkaline Phosphatase 142 Total Protein 5.9 Albumin 2.4 White Blood Count 6.3 Red Blood Count 4.36 Hemoglobin 11.9 Hematocrit 36.5 Mean Corpuscular Volume 83.9 Mean Corpuscular Hemoglobin 27.2 Mean Corpuscular Hemoglobin 32.4 Concent Red Cell Distribution Width 14.0 Platelet Count 159 Mean Platelet Volume 11.1 Neutrophils (%) (Auto) 64.7 Lymphocytes (%) (Auto) 21.6 Monocytes (%) (Auto) 10.8 Eosinophils (%) (Auto) 1.7 Basophils (%) (Auto) 1.2 Neutrophils # (Auto) 4.0 Lymphocytes # (Auto) 1.4 Monocytes # (Auto) 0.7 Eosinophils # (Auto) 0.1 Basophils # (Auto) 0.1 CBC Comment DIFF FINAL Differential Comment Physical Exam HEENT: normocephalic; atraumatic; jaundice. Throat is clear. NECK: Neck is supple, CHEST: Chest is clear to auscultation and percussion. CARDIAC: Regular rate and rhythm with no murmur gallop or rubs. ABDOMEN: Soft, mildly distended, mild tenderness; no hepatosplenomegaly; bowel sounds are present in all four quadrants. EXTREMITIES: No clubbing, cyanosis, or edema. SKIN: Normal; no rash; jaundice. VICE PRESIDENT OF TALENT MANAGEMENT: No focal deficits; alert and oriented times three. Assessment and Plan Plan Acute cholecystitis status post laparoscopic cholecystectomy Elevated liver function tests etiology unclear as far as having biliary ductal stones appeared to be trending down but the bilirubin continues to lag behind at this point Agree with current supportive care Monitor labs we should see a decline in her bilirubin over the next 1-2 days but obviously if there is any sharp increase we may need to pursue an ERCP Further recommendations shall depend on her hospital course 5-18-17 continue to have elevated LFTs, TB 4.8, plan to do ERCP today, further plan based on finding. I explained to patient possible complication including pancreatitis , bleeding, infection perforation and inability to do the procedure. Robson Kasper MD January 10, 2017 12:08
[2017-01-10] MEDS: DILTIAZEM 125 MG/NS 100 ML IV SCH ×2 (12:35)
[2017-01-10] MEDS ORDERED: DILTIAZEM HCL 25 MG/5 ML VIAL ONE (12:39)
[2017-01-10] MEDS ORDERED: DILTIAZEM HCL 25 MG/5 ML VIAL IV PUSH PRN ×2 (13:00)
[2017-01-10] MEDS ORDERED: DO NOT ADM ANY ANTICOAGULANT DRUGS PRN (13:00)
[2017-01-10] MEDS ORDERED: NALOXONE HCL 0.4 MG/ML AMP IV PRN (13:30)
--- NOTE | 2017-01-10 13:41 | PD.CONS ---
HPI Service [facility] Consult Requested By Gastroenterology Reason for Consult Medical management regarding atrial fibrillation with rapid ventricular response Primary Care Physician Unknown Diagnoses: History of Present Illness 81 year-old female with no significant past medical history who is status post lap cholecystectomy with IOC 01/08/17 secondary to acute cholecystitis was in GI lab today for a plan ERCP when patient prior to the procedure was noted to be in A. fib with rapid ventricular response. However at that time she denies any chest pain or shortness of breath. Patient has no known history of CAD and is currently on baby aspirin for cardioprotection. While in PACU, patient reported left upper quadrant anterior chest wall soreness and pressure, however denies any trauma. Patient was noted to have heart rate 130s with elevated BPs. She was started on Cardizem drip with consultation to cardiology as well as [facility]. She has no other complaint. Review of Systems Except as stated in HPI: all other systems reviewed are Neg Past Family Social History Allergies: Coded Allergies: No Known Allergies (Unverified , 01/07/17) Past Medical History Acute cholecystitis Past Surgical History Status post cholecystectomy with IOC 12/25/16 Appendectomy Reported Medications See EMR Family History Denies tobacco, illicit drug use and reports some social alcohol intake. Social History Family history positive for heart disease Physical Exam Vital Signs Vital Signs Date Time Temp Pulse Resp B/P Pulse Ox O2 Delivery O2 Flow Rate FiO2 01/10/17 08:32 96.6 118 18 123/64 93 01/10/17 04:13 124 20 130/85 94 01/10/17 04:00 97.8 01/10/17 00:55 96 Nasal Cannula 2.00 01/10/17 00:40 98 Nasal Cannula 3.00 01/10/17 00:25 133 20 141/89 99 01/09/17 21:03 93 Nasal Cannula 5.00 01/09/17 20:40 84 21 01/09/17 20:00 97.9 113 20 102/56 93 01/09/17 16:11 98.1 102 18 115/68 92 Physical Exam GENERAL: This is a well-nourished, well-developed patient, in no apparent distress. SKIN: No rashes, ecchymoses or lesions. Cool and dry. HEAD: Atraumatic. Normocephalic. No temporal or scalp tenderness. EYES: Pupils equal round and reactive. Extraocular motions intact. No scleral icterus. No injection or drainage. ENT: Nose without bleeding, purulent drainage or septal hematoma. Throat without erythema, tonsillar hypertrophy or exudate. Uvula midline. Airway patent. NECK: Trachea midline. No JVD or lymphadenopathy. Supple, nontender, no meningeal signs. CARDIOVASCULAR: Irregular Regular rate and rhythm without murmurs, gallops, or rubs. RESPIRATORY: Clear to auscultation. Breath sounds equal bilaterally. No wheezes , rales, or rhonchi. GASTROINTESTINAL: Abdomen soft, non-tender, nondistended. No hepato-splenomegaly , or palpable masses. No guarding. Incision clean /dry and intact MUSCULOSKELETAL: Extremities without clubbing, cyanosis, or edema. No joint tenderness, effusion, or edema noted. No calf tenderness. Negative Homans sign bilaterally. NEUROLOGICAL: Awake and alert. Cranial nerves II through XII intact. Motor and sensory grossly within normal limits. Five out of 5 muscle strength in all muscle groups. Normal speech. Laboratory Laboratory Tests Test 01/10/17 01/10/17 05:23 05:25 Sodium Level 142 Potassium Level 3.5 Chloride Level 106 Carbon Dioxide Level 28.8 Anion Gap 7 Blood Urea Nitrogen 10 Creatinine 1.00 Estimat Glomerular Filtration 53 Rate Random Glucose 90 Calcium Level 8.0 Total Bilirubin 4.8 Aspartate Amino Transf 115 (AST/SGOT) Alanine Aminotransferase 226 (ALT/SGPT) Alkaline Phosphatase 142 Total Protein 5.9 Albumin 2.4 White Blood Count 6.3 Red Blood Count 4.36 Hemoglobin 11.9 Hematocrit 36.5 Mean Corpuscular Volume 83.9 Mean Corpuscular Hemoglobin 27.2 Mean Corpuscular Hemoglobin 32.4 Concent Red Cell Distribution Width 14.0 Platelet Count 159 Mean Platelet Volume 11.1 Neutrophils (%) (Auto) 64.7 Lymphocytes (%) (Auto) 21.6 Monocytes (%) (Auto) 10.8 Eosinophils (%) (Auto) 1.7 Basophils (%) (Auto) 1.2 Neutrophils # (Auto) 4.0 Lymphocytes # (Auto) 1.4 Monocytes # (Auto) 0.7 Eosinophils # (Auto) 0.1 Basophils # (Auto) 0.1 CBC Comment DIFF FINAL Differential Comment Result Diagram: 01/10/17 0525 01/10/17 0523 Imaging Last Impressions Cholangiogram 01/08/17 0000 Signed Impressions: Service Date/Time: Sunday, January 08, 2017 11:03 - CONCLUSION: No stone identified as above Yoan Cisneros MD Abdomen/Pelvis CT 01/07/17 0932 Signed Impressions: Service Date/Time: Saturday, January 07, 2017 10:26 - CONCLUSION: 1. The gallbladder is moderately distended with thickening of the gallbladder wall and surrounding inflammatory changes in the adjacent mesenteric fat. These findings suggest acute cholecystitis. 2. Mild dilatation of the biliary ducts. The common bile duct does not appear to be dilated. 3. A few scattered diverticula in the sigmoid colon without inflammatory changes. Robbin Rodgers MD Cholangiopancreatography MRI 01/07/17 0000 Signed Impressions: Service Date/Time: Saturday, January 07, 2017 13:20 - CONCLUSION: The gallbladder is distended and there are multiple stones in the gallbladder. There is thickening of the gallbladder wall. No definite biliary tract obstruction is seen. Robbin Rodgers MD Assessment and Plan Assessment and Plan 81 year-old female with Atrial fibrillation rapid ventricular response Rule out ACS per protocol with serial cardiac enzyme and EKGs Rule out THYROID dysfunction with TSH and free T4 Start Cardizem drip and consult cardiology 2-D echo in a.m. and continue with telemetry monitoring. Will monitor patient in CICU Check lipid profile, BNP Atypical chest pressure Continue with ACS rule out per protocol with serial cardiac enzyme and EKGs Nitroglycerin when necessary, IV morphine when necessary, secondary to elevated LFTs statin contraindicated Cardiology consultation pending Elevated BP without history of hypertension Currently on Cardizem drip Start when necessary hydralazine Acute cholecystitis Status post lap cholecystectomy with IOC Continue with antibiotics Transaminitis Likely secondary to choledocholithiasis however will check hepatitis profile and treat accordingly Continue to monitor CMP Gastroenterology follow-up Questionable Choledocholithiasis Gastroenterology consulted and plan for ERCP when medically stable DVT prophylaxis Bilateral SCDs Thank you for this consultation Code Status Full code Discussed Condition With Patient Venu Ling MD January 10, 2017 13:41
[2017-01-10] MEDS ORDERED: hydrALAZINE HCL 20 MG/ML VIAL IV PUSH PRN (13:45)
[2017-01-10] MEDS ORDERED: DOCUSATE SODIUM 50 MG/SENNA 8.6 MG TAB PO PRN (13:45)
[2017-01-10] MEDS ORDERED: ONDANSETRON HCL 4 MG/2 ML VIAL IV PRN (13:45)
[2017-01-10] MEDS ORDERED: ACETAMINOPHEN 325 MG TAB PO PRN (13:45)
[2017-01-10] MEDS ORDERED: TEMAZEPAM 15 MG CAP PO PRN (13:45)
[2017-01-10] MEDS ORDERED: NITROGLYCERIN 0.4 MG SL 25 TABS/BTL SL PRN (14:00)
[2017-01-10 15:10] LABS: CREATINE KINASE 38 U/L (26-192)
--- NOTE | 2017-01-10 17:34 | EC ---
Study Study Date:01/10/2017 STUDY CONCLUSIONS SUMMARY - Left ventricle: The cavity size was normal. Wall thickness was increased increased in a pattern of mild to moderate LVH. Systolic function was normal. The estimated ejection fraction was in the range of 60% to 65%. Wall motion was normal; there were no regional wall motion abnormalities. - Aortic valve: Valve area: 1.02cm^2(VTI). Valve area: 1.09cm^2 (Vmax). - Mitral valve: Mild regurgitation. - Left atrium: The atrium was moderately dilated. - Right atrium: The atrium was moderately dilated. - Tricuspid valve: Mild regurgitation. - Pulmonary arteries: PA peak pressure: 43mm Hg (S). If LV function is below 40, please consider prescribing an ACEI or ARB or document rationale for non-use. PROCEDURE DATA STUDY STATUS: Elective. Procedure: Transthoracic echocardiography. Image quality was good. Scanning was performed from the parasternal, apical, and subcostal acoustic windows. Study completion: The patient tolerated the procedure well. Transthoracic echocardiography. M-mode, complete 2D, complete spectral Doppler, and color Doppler. Height: Height: 70in. Weight: Weight: 219.5lb. Body mass index: BMI: 31.6kg/m^2. Body surface area: BSA: 2.17m^2. Patient status: Inpatient. CARDIAC ANATOMY LEFT VENTRICLE: The cavity size was normal. Wall thickness was increased increased in a pattern of mild to moderate LVH. Systolic function was normal. The estimated ejection fraction was in the range of 60% to 65%. Wall motion was normal; there were no regional wall motion abnormalities. AORTIC VALVE: Trileaflet; mildly thickened leaflets. Doppler: Transvalvular velocity was within the normal range. There was no stenosis. No regurgitation. Valve area: 1.02cm^2(VTI). Indexed valve area: 0.47cm^2/m^2 (VTI). Valve area: 1.09cm^2 (Vmax). Indexed valve area: 0.5cm^2/m^2 (Vmax). Mean gradient: 4mm Hg (S). AORTA: Aortic root: The aortic root was normal in size. MITRAL VALVE: Structurally normal valve. Doppler: Transvalvular velocity was within the normal range. There was no evidence for stenosis. Mild regurgitation. Peak gradient: 4mm Hg (D). LEFT ATRIUM: The atrium was moderately dilated. RIGHT VENTRICLE: The cavity size was normal. Wall thickness was normal. PULMONIC VALVE: Doppler: Transvalvular velocity was within the normal range. There was no evidence for stenosis. No regurgitation. TRICUSPID VALVE: Structurally normal valve. Doppler: Transvalvular velocity was within the normal range. Mild regurgitation. PULMONARY ARTERY: The main pulmonary artery was normal-sized. Systolic pressure was within the normal range. RIGHT ATRIUM: The atrium was moderately dilated. PERICARDIUM: There was no pericardial effusion. SYSTEMIC VEINS: Inferior vena cava: The vessel was normal in size. Patient weight: 219.5lb _Ejection fraction:_ 65-75% _Fractional shortening:_ 32% up to 5Kg 5-11.5Kg 11.6-22.9Kg 23-45Kg 45-57Kg Aortic Root 7-13 <17 13-22 17-27 17-27 LA diam 6-13 <23 24-38 33-47 37-40 RVID 10-17 7-15 7-15 7-18 8-17 LVIDd 12-22 <32 24-38 33-47 37-40 LVPW 2-4 3-6 5-7 6-8 7-8 IVS 2-4 3-6 5-7 6-8 7-8 BASIC MEASUREMENTS ADULT NORMAL Left ventricle LV internal dimension, ED, chordal 44 mm 43-52 level, PLAX LV internal dimension, ES, chordal 29.7 mm 23-38 level, PLAX Fractional shortening, chordal level, 33 % >29 PLAX LV posterior wall thickness, ED 8.75 mm IVS/LVPW ratio, ED 1 <1.3 Ventricular septum Septal thickness, ED 8.74 mm Aortic valve Leaflet separation 17 mm 15-26 Aorta Root diameter, ED 27 mm Left atrium Anterior-posterior dimension 28 mm Anterior-posterior dimension index 1.29 cm/m^2 <2.2 BASIC MEASUREMENTS ADULT NORMAL Aortic valve Leaflet separation 17 mm 15-26 DOPPLER MEASUREMENTS ADULT NORMAL Main pulmonary artery Pressure, S *43 mm Hg =30 Aortic valve Peak velocity, S 127 cm/s Mean velocity, S 88.7 cm/s VTI, S 21.5 cm Mean gradient, S 4 mm Hg Valve area, VTI 1.02 cm^2 Valve area index, VTI 0.47 cm^2/m^2 Valve area, Vmax 1.09 cm^2 Valve area index, Vmax 0.5 cm^2/m^2 Mitral valve Peak E-wave velocity 97.7 cm/s Deceleration time *125 ms 150-230 Peak gradient, D 4 mm Hg Tricuspid valve Regurgitant peak velocity 296 cm/s Peak RV-RA gradient, S 35 mm Hg Maximal regurgitant velocity 296 cm/s Systemic veins Estimated CVP 10 mm Hg Right ventricle RV pressure, S *45 mm Hg <30 Pulmonic valve Peak velocity, S 65.4 cm/s LEGEND: Mean values are shown as u=mean value. Asterisk (*) candelario values outside specified normal range. Amended Patrick Johnson [id number]
--- NOTE | 2017-01-10 18:26 | MB ---
cc: ANALY SANABRIA MD DATE OF CONSULTATION 01/10/17 INDICATION Atrial fibrillation. HISTORY OF PRESENT ILLNESS This is a 81-year-old female. She just recently underwent lap cholecystectomy back on January 08 secondary to acute cholecystitis. She was over at the GI lab, planned for ERCP, when she was noted to be in atrial fibrillation with rapid ventricular rate. She initially presented with abdominal pain. She denies any palpitations, chest pain, shortness of breath. No history of heart problems. She has been on a baby aspirin. Heart rate was in the 130 beats per minute range. She was started on Cardizem drip, procedure cancelled and cardiology consulted. PAST MEDICAL HISTORY Acute cholecystitis status post cholecystectomy otherwise healthy. FAMILY HISTORY Denies any family history of early coronary artery disease or sudden cardiac . SOCIAL HISTORY Denies any alcohol, tobacco or drug use. ALLERGIES No known drug allergies. REVIEW OF SYSTEMS 12-point review of system was performed, negative unless otherwise noted in History of Present Illness. PHYSICAL EXAMINATION VITAL SIGNS: Temperature is 98, heart rate 100, blood pressure of 145/79 mmHg. GENERAL: Alert and oriented times three in no acute distress. HEENT: Exam shows pupils reactive to light and accommodation, extraocular movements are intact. No elevation in jugular venous distension. No thyromegaly or lymphadenopathy. No carotid bruits. LUNGS: Clear to auscultation bilaterally. CARDIOVASCULAR: Irregular irregular rhythm without murmurs, rubs or gallops. ABDOMEN: Nontender, nondistended. Good bowel sounds. No hepatosplenomegaly. EXTREMITIES: No clubbing, cyanosis or edema. Good peripheral pulses. NEUROLOGIC: Cranial nerves intact. Motor sensory grossly intact. LABORATORY DATA WBC 6.3, hemoglobin 11.9, platelet count 14. Sodium 142, potassium 3.5, BUN is 10, creatinine is one, troponins negative. ASSESSMENT Atrial fibrillation with rapid ventricular rate. PLAN This is likely secondary to increased adrenergic tone. Her echocardiogram is relatively unremarkable. I agree with hospitalist. We will check for thyroid function. Her CHADS vas score is 3 for age and female sex. I do not know think that she has longstanding atrial fibrillation. She is agreeable to aspirin 325 mg a day, but I do not feel strongly about anticoagulation. With the relatively normal structurally normal heart, hopefully after this event she will spontaneously convert and maintain sinus. I will add oral Cardizem and wean the drip. From a cardiovascular perspective, she would be clear as long as her heart rates are relatively well-controlled to undergo any future procedures. MD KRISTINE Loving/ /5:48 PM /6:07 PM
[2017-01-10] MEDS: DILTIAZEM HCL 60 MG TAB PO SCH (18:47)
[2017-01-10 21:23] LABS: CREATINE KINASE 79 U/L (26-192)
[2017-01-11] VITALS (26 sets, daily range): BP systolic 109–145; BP diastolic 48–92; PULSE 74–130; RESP 16–20; TEMP 97.7–98.5; O2SAT 90–98
[2017-01-11] MEDS: DILTIAZEM HCL 60 MG TAB PO SCH ×4 (00:26→18:12)
[2017-01-11] MEDS: PIPERACIL-TAZO 3.375 GM PREMIX 50 ML IV SCH ×3 (00:27→18:20)
[2017-01-11 00:54] LABS: ALKALINE PHOSPHATASE 197 U/L (45-117); HDL CHOLESTEROL 22.4 MG/DL (40.0-60.0); TOTAL BILIRUBIN ADULT 7.4 MG/DL (0.2-1.0)
[2017-01-11 01:13] LABS: ALT (GPT) 197 U/L (10-53); ANION GAP 7 MEQ/L (5-15); AST (GOT) 96 U/L (15-37); BICARBONATE 26.7 MEQ/L (21.0-32.0); BLOOD UREA NITROGEN 8 MG/DL (7-18); CHLORIDE 107 MEQ/L (98-107); CREATINE KINASE 34 U/L (26-192); GLOMERULAR FILTRATION RATE 46 ML/MIN (>89); LDL CHOLESTEROL 125 MG/DL (0-99); POTASSIUM 3.6 MEQ/L (3.5-5.1); SODIUM (NA) 141 MEQ/L (136-145)
--- NOTE | 2017-01-11 07:53 | PD.CARD.PN ---
Subjective Subjective Remarks doing well LFTs up HR fairly well controlled when in bed but tachycardiac with OOB activities Objective Medications Active Medications Acetaminophen (Tylenol) 650 mg Q4H PRN PO; Start 01/10/17 at 13:45 Aspirin (Ecotrin Ec) 325 mg DAILY PO; Start 01/11/17 at 09:00 Diltiazem HCl (Cardizem Inj) 5 mg BOLUS PRN IV PUSH Last administered on 13:05; Admin Dose 5 MG; Start 01/10/17 at 13:00; Stop 01/11/17 at 12:59 Diltiazem HCl (Cardizem Inj) 25 mg STK-MED ONCE .ROUTE; Start 01/10/17 at 12:39 ; Stop 01/10/17 at 12:40; Status DC Diltiazem HCl (Cardizem) 60 mg Q6HR PO Last administered on 01/11/17 06:01; Admin Dose 60 MG; Start 01/10/17 at 18:00 Diltiazem HCl 5 mg 5 mg BOLUS PRN IV PUSH Last administered on 01/10/17 12:45 ; Admin Dose 5 MG; Start 01/10/17 at 13:00; Stop 01/11/17 at 12:59 Diltiazem HCl/ Sodium Chloride (Cardizem Inj/NS Inj) 125 ml @ 0 mls/hr TITRATE IV Last administered on 01/10/17 12:35; Admin Dose 5 MLS/HR; Start 01/10/17 at 13:00 Hydralazine HCl (Apresoline Inj) 20 mg Q4H PRN IV PUSH; Start 01/10/17 at 13:45 Miscellaneous Information ALL NURSING DEPARTME... UNSCH PRN .XX; Start at 13:00; Stop 01/11/17 at 12:59 Naloxone HCl (Narcan Inj) 0.4 mg UNSCH PRN IV; Start 01/10/17 at 13:30 Nitroglycerin (Nitrostat Sl) 0.4 mg Q5M PRN SL; Start 01/10/17 at 14:00 Ondansetron HCl (Zofran Inj) 4 mg Q6H PRN IV; Start 01/10/17 at 13:45 Piperacillin Sod/ Tazobactam Sod (Zosyn 3.375 Gm Premix) 50 ml @ 100 mls/hr Q8H IV Last administered on 01/11/17t 00:27; Admin Dose 100 MLS/HR; Start at 09:00 Senna/Docusate Sodium (Rosanna-Colace) 1 tab BID PRN PO; Start 01/10/17 at 13:45 Temazepam (Restoril) 15 mg HS PRN PO; Start 01/10/17 at 13:45 Vital Signs / I&O Vital Signs Date Time Temp Pulse Resp B/P Pulse Ox O2 Delivery O2 Flow Rate FiO2 01/11/17 06:00 104 01/11/17 05:00 81 01/11/17 04:00 97.7 99 16 113/48 95 01/11/17 04:00 86 01/11/17 03:00 80 01/11/17 03:00 95 Nasal Cannula 2.00 01/11/17 02:15 75 01/11/17 01:02 84 01/11/17 00:00 97.8 113 18 131/67 94 01/11/17 00:00 83 01/10/17 23:00 90 Nasal Cannula 2.00 01/10/17 23:00 85 01/10/17 22:00 78 01/10/17 21:00 90 01/10/17 20:39 94 Nasal Cannula 2.00 01/10/17 20:00 100 01/10/17 20:00 97.9 102 18 124/74 94 01/10/17 19:00 100 01/10/17 18:11 97 01/10/17 17:07 98.1 100 22 125/79 94 01/10/17 17:00 105 01/10/17 16:15 98.1 98 16 132/60 97 Nasal Cannula 3 01/10/17 15:45 103 16 144/68 97 Nasal Cannula 3 01/10/17 15:15 105 16 126/63 97 Nasal Cannula 3 01/10/17 15:00 101 16 153/71 96 Nasal Cannula 3 01/10/17 14:45 116 17 140/83 96 Nasal Cannula 3 01/10/17 14:30 119 15 137/80 96 Nasal Cannula 3 01/10/17 14:15 126 15 137/89 96 Nasal Cannula 3 01/10/17 14:00 138 16 160/64 95 Nasal Cannula 3 01/10/17 13:45 128 16 164/69 95 Nasal Cannula 3 01/10/17 13:30 126 16 164/89 93 Nasal Cannula 3 01/10/17 13:15 138 16 169/81 93 Nasal Cannula 3 01/10/17 13:00 126 16 153/74 93 Nasal Cannula 3 01/10/17 12:45 140 17 164/72 93 Nasal Cannula 3 01/10/17 12:32 98.1 150 17 166/89 96 Nasal Cannula 3 01/10/17 08:32 96.6 118 18 123/64 93 01/10/17 08:00 94 Nasal Cannula 2.00 I/O 01/10/17 01/10/17 01/10/17 01/11/17 01/11/17 01/11/17 07:00 15:00 23:00 07:00 15:00 23:00 Intake Total 1090 ml 100 ml 250 ml 480 ml Output Total 2000 ml 0 ml 950 ml 750 ml Balance -910 ml 100 ml -700 ml -270 ml Intake Oral 240 ml 480 ml IV Total 850 ml 250 ml Other 100 ml Output Urine Total 2000 ml 0 ml 950 ml 750 ml # Voids 1 # Bowel Movements 0 Physical Exam GENERAL: SKIN: Warm and dry. HEAD: Normocephalic. EYES: No scleral icterus. No injection or drainage. NECK: Supple, trachea midline. No JVD or lymphadenopathy. CARDIOVASCULAR: IR IR. RESPIRATORY: Breath sounds equal bilaterally. No accessory muscle use. GASTROINTESTINAL: Abdomen soft, non-tender, nondistended. MUSCULOSKELETAL: No cyanosis, or edema. BACK: Nontender without obvious deformity. No CVA tenderness. Laboratory Laboratory Tests Test 01/10/17 01/10/17 01/11/17 13:27 20:35 00:25 Total Creatine Kinase 38 U/L 79 U/L 34 U/L Troponin I LESS THAN 0.02 LESS THAN 0.02 LESS THAN 0.02 NG/ML NG/ML NG/ML Sodium Level 141 MEQ/L Potassium Level 3.6 MEQ/L Chloride Level 107 MEQ/L Carbon Dioxide Level 26.7 MEQ/L Anion Gap 7 MEQ/L Blood Urea Nitrogen 8 MG/DL Creatinine 1.13 MG/DL Estimat Glomerular Filtration 46 ML/MIN Rate Random Glucose 97 MG/DL Calcium Level 8.4 MG/DL Total Bilirubin 7.4 MG/DL Aspartate Amino Transf 96 U/L (AST/SGOT) Alanine Aminotransferase 197 U/L (ALT/SGPT) Alkaline Phosphatase 197 U/L Total Protein 6.4 GM/DL Albumin 2.7 GM/DL Triglycerides Level 110 MG/DL Cholesterol Level 169 MG/DL LDL Cholesterol 125 MG/DL HDL Cholesterol 22.4 MG/DL Cholesterol/HDL Ratio 7.54 RATIO Imaging Last Impressions Cholangiogram 01/08/17 0000 Signed Impressions: Service Date/Time: Sunday, January 08, 2017 11:03 - CONCLUSION: No stone identified as above Yoan Cisneros MD Abdomen/Pelvis CT 01/07/17 0932 Signed Impressions: Service Date/Time: Saturday, January 07, 2017 10:26 - CONCLUSION: 1. The gallbladder is moderately distended with thickening of the gallbladder wall and surrounding inflammatory changes in the adjacent mesenteric fat. These findings suggest acute cholecystitis. 2. Mild dilatation of the biliary ducts. The common bile duct does not appear to be dilated. 3. A few scattered diverticula in the sigmoid colon without inflammatory changes. Robbin Rodgers MD Cholangiopancreatography MRI 01/07/17 0000 Signed Impressions: Service Date/Time: Saturday, January 07, 2017 13:20 - CONCLUSION: The gallbladder is distended and there are multiple stones in the gallbladder. There is thickening of the gallbladder wall. No definite biliary tract obstruction is seen. Robbin Rodgers MD Assessment and Plan Assessment and Plan afib RVR - back on cardizem gtt. continue cardizem PO q 6. add digoxin. [id number] = 3. aspirin 325 for now given procedures. will need to discuss or decide +/- anticoagulation strategy vs continued aspirin clear from cardiac perspective to undergo ERCP today Patrick Johnson MD January 11, 2017 07:53
--- NOTE | 2017-01-11 08:02 | HHI.GIFU ---
Subjective Remarks Resting in bed. No n/v. No abdominal pain. HR mostly staying around 90, except when she gets up and ambulates- at which time it goes to the low teens. D/W Dr. Johnson, okay for ERCP today per cardiology standpoint. Objective Vitals I&O Vital Signs Date Time Temp Pulse Resp B/P Pulse Ox O2 Delivery O2 Flow Rate FiO2 01/11/17 06:00 104 01/11/17 05:00 81 01/11/17 04:00 97.7 99 16 113/48 95 01/11/17 04:00 86 01/11/17 03:00 80 01/11/17 03:00 95 Nasal Cannula 2.00 01/11/17 02:15 75 01/11/17 01:02 84 01/11/17 00:00 97.8 113 18 131/67 94 01/11/17 00:00 83 01/10/17 23:00 90 Nasal Cannula 2.00 01/10/17 23:00 85 01/10/17 22:00 78 01/10/17 21:00 90 01/10/17 20:39 94 Nasal Cannula 2.00 01/10/17 20:00 100 01/10/17 20:00 97.9 102 18 124/74 94 01/10/17 19:00 100 01/10/17 18:11 97 01/10/17 17:07 98.1 100 22 125/79 94 01/10/17 17:00 105 01/10/17 16:15 98.1 98 16 132/60 97 Nasal Cannula 3 01/10/17 15:45 103 16 144/68 97 Nasal Cannula 3 01/10/17 15:15 105 16 126/63 97 Nasal Cannula 3 01/10/17 15:00 101 16 153/71 96 Nasal Cannula 3 01/10/17 14:45 116 17 140/83 96 Nasal Cannula 3 01/10/17 14:30 119 15 137/80 96 Nasal Cannula 3 01/10/17 14:15 126 15 137/89 96 Nasal Cannula 3 01/10/17 14:00 138 16 160/64 95 Nasal Cannula 3 01/10/17 13:45 128 16 164/69 95 Nasal Cannula 3 01/10/17 13:30 126 16 164/89 93 Nasal Cannula 3 01/10/17 13:15 138 16 169/81 93 Nasal Cannula 3 01/10/17 13:00 126 16 153/74 93 Nasal Cannula 3 01/10/17 12:45 140 17 164/72 93 Nasal Cannula 3 01/10/17 12:32 98.1 150 17 166/89 96 Nasal Cannula 3 01/10/17 08:32 96.6 118 18 123/64 93 01/10/17 08:00 94 Nasal Cannula 2.00 I/O 01/10/17 01/10/17 01/10/17 01/11/17 01/11/17 01/11/17 07:00 15:00 23:00 07:00 15:00 23:00 Intake Total 1090 ml 100 ml 250 ml 480 ml Output Total 2000 ml 0 ml 950 ml 750 ml Balance -910 ml 100 ml -700 ml -270 ml Intake Oral 240 ml 480 ml IV Total 850 ml 250 ml Other 100 ml Output Urine Total 2000 ml 0 ml 950 ml 750 ml # Voids 1 # Bowel Movements 0 Laboratory Laboratory Tests Test 01/10/17 01/10/17 01/11/17 13:27 20:35 00:25 Total Creatine Kinase 38 79 34 Troponin I LESS THAN 0.02 LESS THAN 0.02 LESS THAN 0.02 Sodium Level 141 Potassium Level 3.6 Chloride Level 107 Carbon Dioxide Level 26.7 Anion Gap 7 Blood Urea Nitrogen 8 Creatinine 1.13 Estimat Glomerular Filtration 46 Rate Random Glucose 97 Calcium Level 8.4 Total Bilirubin 7.4 Aspartate Amino Transf 96 (AST/SGOT) Alanine Aminotransferase 197 (ALT/SGPT) Alkaline Phosphatase 197 Total Protein 6.4 Albumin 2.7 Triglycerides Level 110 Cholesterol Level 169 LDL Cholesterol 125 HDL Cholesterol 22.4 Cholesterol/HDL Ratio 7.54 Imaging Last Impressions Cholangiogram 01/08/17 0000 Signed Impressions: Service Date/Time: Sunday, January 08, 2017 11:03 - CONCLUSION: No stone identified as above Yoan Cisneros MD Abdomen/Pelvis CT 01/07/17 0932 Signed Impressions: Service Date/Time: Saturday, January 07, 2017 10:26 - CONCLUSION: 1. The gallbladder is moderately distended with thickening of the gallbladder wall and surrounding inflammatory changes in the adjacent mesenteric fat. These findings suggest acute cholecystitis. 2. Mild dilatation of the biliary ducts. The common bile duct does not appear to be dilated. 3. A few scattered diverticula in the sigmoid colon without inflammatory changes. Robbin Rodgers MD Cholangiopancreatography MRI 01/07/17 0000 Signed Impressions: Service Date/Time: Saturday, January 07, 2017 13:20 - CONCLUSION: The gallbladder is distended and there are multiple stones in the gallbladder. There is thickening of the gallbladder wall. No definite biliary tract obstruction is seen. Robbin Rodgers MD Physical Exam HEENT: Normocephalic; atraumatic; jaundice NECK: Neck is supple, CHEST: CTA CARDIAC: Irregular, HR 100. ABDOMEN: Soft, mildly distended, mild tenderness; no hepatosplenomegaly; bowel sounds are present in all four quadrants. EXTREMITIES: No clubbing, cyanosis, or edema. SKIN: Normal; no rash; jaundice. SHUTTLELESS LOOM WEAVER: No focal deficits; alert and oriented times three. Assessment and Plan Plan ASSESSMENT: - Elevated LFTs. Pt came in with acute cholecystitis. Abdomen/Pelvis CT ()-----> 1. The gallbladder is moderately distended with thickening of the gallbladder wall and surrounding inflammatory changes in the adjacent mesenteric fat. These findings suggest acute cholecystitis. 2. Mild dilatation of the biliary ducts. The common bile duct does not appear to be dilated. 3. A few scattered diverticula in the sigmoid colon without inflammatory changes. MRCP (01/07/17)----> The gallbladder is distended and there are multiple stones in the gallbladder. There is thickening of the gallbladder wall. No definite biliary tract obstruction is seen. S/P laparoscopic cholecystectomy with IOC () with Dr. Garcia. Elevated liver function tests etiology unclear as far as having biliary ductal stones appeared to be trending down but the bilirubin continues to lag behind at this point. Plan was for ERCP yesterday, but she developed new onset atrial fibrillation and therefore this was cancelled. Cardiology consulted, started on Cardizem drip. Rate controlled at rest, goes to low teens on exertion. Spoke with Dr. Johnson and he has cleared patient for ERCP today. Transaminases continue to improve, but patient's bilirubin continues to rise- up to 7.4, AST 96, ALT 197, Alk phosph 197. Will plan for ERCP today. NPO. - Atrial fibrillation. Cardizem gtt. Dr. Johnson following. Cleared for ERCP today. PLAN: - Plan for ERCP with possible sphincterotomy, possible stent placement today - Obtain consent - NPO - CBC, LFT in am - Cardiology following- Dr. Johnson has cleared patient for ERCP today - Supportive care - Further recommendations to follow based on results of above - Pt seen and examined by Dr. Villa and myself and this note is written on his behalf Yany Hall January 11, 2017 08:02
--- NOTE | 2017-01-11 09:05 | HHI.PR ---
Subjective Remarks Patient seen and examined Denies any heart palpitation, chest pain or shortness of breath. No acute event overnight Case discussed with Dr. corona, cardiology Objective Vitals Vital Signs Date Time Temp Pulse Resp B/P Pulse Ox O2 Delivery O2 Flow Rate FiO2 01/11/17 08:41 98 Nasal Cannula 2.00 01/11/17 08:00 97.9 96 20 109/62 98 01/11/17 06:00 104 01/11/17 05:00 81 01/11/17 04:00 97.7 99 16 113/48 95 01/11/17 04:00 86 01/11/17 03:00 80 01/11/17 03:00 95 Nasal Cannula 2.00 01/11/17 02:15 75 01/11/17 01:02 84 01/11/17 00:00 97.8 113 18 131/67 94 01/11/17 00:00 83 01/10/17 23:00 90 Nasal Cannula 2.00 01/10/17 23:00 85 01/10/17 22:00 78 01/10/17 21:00 90 01/10/17 20:39 94 Nasal Cannula 2.00 01/10/17 20:00 100 01/10/17 20:00 97.9 102 18 124/74 94 01/10/17 19:00 100 01/10/17 18:11 97 01/10/17 17:07 98.1 100 22 125/79 94 01/10/17 17:00 105 01/10/17 16:15 98.1 98 16 132/60 97 Nasal Cannula 3 01/10/17 15:45 103 16 144/68 97 Nasal Cannula 3 01/10/17 15:15 105 16 126/63 97 Nasal Cannula 3 01/10/17 15:00 101 16 153/71 96 Nasal Cannula 3 01/10/17 14:45 116 17 140/83 96 Nasal Cannula 3 01/10/17 14:30 119 15 137/80 96 Nasal Cannula 3 01/10/17 14:15 126 15 137/89 96 Nasal Cannula 3 01/10/17 14:00 138 16 160/64 95 Nasal Cannula 3 01/10/17 13:45 128 16 164/69 95 Nasal Cannula 3 01/10/17 13:30 126 16 164/89 93 Nasal Cannula 3 5/18/17 13:15 138 16 169/81 93 Nasal Cannula 3 01/10/17 13:00 126 16 153/74 93 Nasal Cannula 3 01/10/17 12:45 140 17 164/72 93 Nasal Cannula 3 01/10/17 12:32 98.1 150 17 166/89 96 Nasal Cannula 3 I/O 01/10/17 01/10/17 01/10/17 01/11/17 01/11/17 01/11/17 07:00 15:00 23:00 07:00 15:00 23:00 Intake Total 1090 ml 100 ml 250 ml 480 ml Output Total 2000 ml 0 ml 950 ml 750 ml Balance -910 ml 100 ml -700 ml -270 ml Intake Oral 240 ml 480 ml IV Total 850 ml 250 ml Other 100 ml Output Urine Total 2000 ml 0 ml 950 ml 750 ml # Voids 1 # Bowel Movements 0 Result Diagram: 01/10/17 0525 01/11/17 0025 Imaging Last Impressions Cholangiogram 01/08/17 0000 Signed Impressions: Service Date/Time: Sunday, January 08, 2017 11:03 - CONCLUSION: No stone identified as above Yoan Cisneros MD Abdomen/Pelvis CT 01/07/17 0932 Signed Impressions: Service Date/Time: Saturday, January 07, 2017 10:26 - CONCLUSION: 1. The gallbladder is moderately distended with thickening of the gallbladder wall and surrounding inflammatory changes in the adjacent mesenteric fat. These findings suggest acute cholecystitis. 2. Mild dilatation of the biliary ducts. The common bile duct does not appear to be dilated. 3. A few scattered diverticula in the sigmoid colon without inflammatory changes. Robbin Rodgers MD Cholangiopancreatography MRI 01/07/17 0000 Signed Impressions: Service Date/Time: Saturday, January 07, 2017 13:20 - CONCLUSION: The gallbladder is distended and there are multiple stones in the gallbladder. There is thickening of the gallbladder wall. No definite biliary tract obstruction is seen. Robbin Rodgers MD Objective Remarks GENERAL: NAD SKIN: Warm and dry. HEAD: Normocephalic. EYES: No scleral icterus. No injection or drainage. NECK: Supple, trachea midline. No JVD or lymphadenopathy. CARDIOVASCULAR: irreg Regular rate and rhythm without murmurs, gallops, or rubs. RESPIRATORY: Breath sounds equal bilaterally. No accessory muscle use. GASTROINTESTINAL: Abdomen soft, non-tender, nondistended. MUSCULOSKELETAL: No cyanosis, or edema. BACK: Nontender without obvious deformity. No CVA tenderness. A/P Assessment and Plan 81 year-old female with Atrial fibrillation rapid ventricular response ACS ruled out per protocol with serial cardiac enzyme and EKGs THYROID dysfunction ruled out with normal TSH and free T4 Wean off Cardizem drip and continue with PO Cardizem as well as Digoxin per Cardiology 2-D echo pending and continue with telemetry monitoring. Currently on ASA 325mg Daily. OAC per Cardiology Check lipid profile, BNP Atypical chest pressure-Resolved ACS ruled out per protocol with serial cardiac enzyme and EKGs Elevated BP without history of hypertension Currently normotensive Acute cholecystitis Status post lap cholecystectomy with IOC Continue with antibiotics Management per general surgery Transaminitis-trending down Likely secondary to choledocholithiasis however hepatitis profile pending and treat accordingly Continue to monitor CMP Gastroenterology follow-up Questionable Choledocholithiasis Gastroenterology consulted and likely plan for ERCP today 01/11/17 DVT prophylaxis Bilateral SCDs Venu Ling MD January 11, 2017 09:05
[2017-01-11] MEDS: ASPIRIN EC 325 MG TABEC PO SCH (09:29)
[2017-01-11] MEDS: SODIUM CHLORIDE 0.9% FLUSH 10 ML FLUSH IV FLUSH SCH ×2 (09:30→20:16)
--- NOTE | 2017-01-11 10:40 | HHI.PR ---
Subjective Subjective Notes Resting in bed Awaiting ERCP today Jaundice Objective Vitals/I&O Vital Signs Date Time Temp Pulse Resp B/P Pulse Ox O2 Delivery O2 Flow Rate FiO2 01/11/17 08:41 98 Nasal Cannula 2.00 01/11/17 08:00 97.9 96 20 109/62 01/09/17 20:40 21 Labs Laboratory Tests Test 01/10/17 01/10/17 01/11/17 13:27 20:35 00:25 Total Creatine Kinase 38 79 34 Troponin I LESS THAN 0.02 LESS THAN 0.02 LESS THAN 0.02 Hepatitis A IgM Antibody NEGATIVE Hepatitis B Surface Antigen NEGATIVE Hepatitis B Core IgM Antibody NEGATIVE Hepatitis C Antibody NEGATIVE Sodium Level 141 Potassium Level 3.6 Chloride Level 107 Carbon Dioxide Level 26.7 Anion Gap 7 Blood Urea Nitrogen 8 Creatinine 1.13 Estimat Glomerular Filtration 46 Rate Random Glucose 97 Calcium Level 8.4 Total Bilirubin 7.4 Aspartate Amino Transf 96 (AST/SGOT) Alanine Aminotransferase 197 (ALT/SGPT) Alkaline Phosphatase 197 Total Protein 6.4 Albumin 2.7 Triglycerides Level 110 Cholesterol Level 169 LDL Cholesterol 125 HDL Cholesterol 22.4 Cholesterol/HDL Ratio 7.54 Cardiovascular: Regular Lungs: Clear Abdomen: Other (umbilicus lap site with eccomosis; other lap sites c/d/i; abdomen mildly tender; soft ) Extremities: No edema A/P Assessment and Plan 81 year old female s/p lap christian with increasing bilirubin -T-bili 74 -HR stable---Cardiology following -NPO -ERCP planned for today -Continue IVF -Zosyn - at bedside; updated on plan of care -Discussed with Dr. Garcia Attending Note - Dr. Garcia S/P ERCP with stent placement; may be d/c'd when ok by cardiology Cardiazem drip being weaned. Will need scripts for cardiazem and/or digoxin Stable from GS standpoint F/U my office next week. The exam, history, and the medical decision-making described in the above note were completed with the assistance of the mid-level provider. I reviewed and agree with the findings presented. I attest that I had a [id number] encounter with the patient on the same day, and personally performed and documented my assessment and findings in the medical record. Criss,Anita B. JUNIOR PHP DEVELOPER January 11, 2017 10:39 Mp Garcia MD January 11, 2017 20:14
[2017-01-11] MEDS: DEXT 5%-NACL 0.45% 1000 ML INJ 1,000 ML IV SCH (12:05)
[2017-01-11 14:06] LABS: INTERNATIONAL NORMALIZED RATIO 1.2 RATIO; PROTHROMBIN TIME - PATIENT 13.3 SEC (9.8-11.6)
[2017-01-11] MEDS: DIGOXIN 0.5 MG/2 ML VIAL IVS SCH ×2 (14:29→20:17)
[2017-01-11] MEDS: DILTIAZEM 125 MG/NS 100 ML IV SCH ×2 (14:29)
[2017-01-11] MEDS ORDERED: ATROPINE SULFATE 1 MG/10 ML SYRINGE ONE (15:05)
[2017-01-11] MEDS ORDERED: EPINEPHrine HCL (1:10,000) 1 MG/10 ML SYRINGE ONE (15:06)
[2017-01-11] MEDS ORDERED: PROPOFOL 200 MG/20 ML AMP IV ONE (16:30)
[2017-01-11] MEDS ORDERED: DO NOT ADM ANY ANTICOAGULANT DRUGS PRN (17:02)
[2017-01-11] MEDS ORDERED: LEVA500T PO (20:12)
--- NOTE | 2017-01-11 21:07 | RADRPT ---
EXAM DATE/TIME: 01/11/2017 15:54 [facility] COMPARISON: No previous studies available for comparison. INDICATIONS : ERCP in surgery. FLUORO TIME: 46 IMAGE COUNT: 9 CONTRAST: Instilled by Ordering Physician MEDICAL HISTORY : Hypercholesterolemia. SURGICAL HISTORY : Hysterectomy. Appendectomy. operative cholangiogram ENCOUNTER: Subsequent ACUITY: 1 week PAIN SCORE: Non-responsive. LOCATION: Right abdomen FINDINGS: An ERCP was performed by the ordering physician. There is a mildly distended common bile duct with mild luminal irregularity in a somewhat stacked coi n or bead on chain appearance. The ampullary region appears potentially narrowed. I don't see a filli ng defect. A Silastic stent is placed at the end of the procedure. Distal tip is in the duodenum. CONCLUSION: ERCP as above with common bile duct stent placement.. Tahir Kim MD on January 11, 2017 at 21:01 Board Certified Radiologist. This report was verified electronically.
--- NOTE | 2017-01-11 21:08 | EKG ---
Date Performed: 01/11/2017 Time Performed: 01:31:16 PTAGE: 81 years EKG: Atrial fibrillation Extensive T wave changes are nonspecific Abnormal ECG PREVIOUS TRACING : 01/10/2017 20.40 Compared to prior tracing no significant change DOCTOR: Romel Robertson Interpretating Date/Time 01/11/2017 21:08:15
--- NOTE | 2017-01-11 21:22 | EKG ---
Date Performed: 01/10/2017 Time Performed: 20:40:08 PTAGE: 81 years EKG: Atrial fibrillation Extensive T wave changes are nonspecific Abnormal ECG PREVIOUS TRACING : 01/10/2017 12.37 Compared to the previous tracing AFIB with RVR is no longer present DOCTOR: Romel Robertson Interpretating Date/Time 01/11/2017 21:20:33
--- NOTE | 2017-01-11 21:58 | EKG ---
Date Performed: 01/10/2017 Time Performed: 12:37:42 PTAGE: 81 years EKG: ATRIAL FIBRILLATION WITH RAPID VENTRICULAR RESPONSE NONSPECIFIC ST & T-WAVE ABNORMALITY ABN ORMAL ECG PREVIOUS TRACING : 01/08/2017 09.34 Compared to the previous tracing AFIB with RVR is new DOCTOR: Romel Robertson Interpretating Date/Time 01/11/2017 21:57:02
[2017-01-12] VITALS (28 sets, daily range): BP systolic 13–159; BP diastolic 33–73; PULSE 71–108; RESP 16; TEMP 97.8–98.2; O2SAT 93–97
[2017-01-12] MEDS: DILTIAZEM HCL 60 MG TAB PO SCH ×4 (00:03→17:01)
[2017-01-12] MEDS: PIPERACIL-TAZO 3.375 GM PREMIX 50 ML IV SCH ×3 (00:03→16:09)
[2017-01-12] MEDS: DIGOXIN 0.125 MG TAB PO SCH (09:00)
[2017-01-12] MEDS: SODIUM CHLORIDE 0.9% FLUSH 10 ML FLUSH IV FLUSH SCH ×2 (09:49→21:00)
[2017-01-12] MEDS: ASPIRIN EC 325 MG TABEC PO SCH (09:50)
--- NOTE | 2017-01-12 11:15 | PD.CARD.PN ---
Subjective Subjective Remarks Pt without complaints Objective Medications Current Medications Medications (Trade) Dose Ordered Sig/Charity Route Start Time Stop Time Status Last Admin (Zofran Inj) 4 mg Q6H PRN IV 01/07/17 11:15 01/07/17 21:06 (NS Flush) 2 ml BID IV FLUSH 01/07/17 21:00 01/12/17 09:49 (NS Flush) 2 ml UNSCH PRN IVF 01/07/17 11:15 (Morphine Inj) 2 mg Q3H PRN IV PUSH 01/07/17 11:15 01/08/17 00:04 (Gaastra 7.5-325 Mg) 1 tab Q4H PRN PO 01/08/17 12:00 01/09/17 02:52 Acetaminophen/ Hydrocodone Bitart 2 tab 2 tab Q4H PRN PO 01/08/17 12:00 Piperacillin Sod/ Tazobactam Sod 50 ml @ 100 mls/hr Q8H IV 01/10/17 09:00 01/12/17 09:52 (Cardizem Inj/NS Inj) 125 ml @ 0 mls/hr TITRATE IV 01/10/17 13:00 01/11/17 14:29 (Narcan Inj) 0.4 mg UNSCH PRN IV 01/10/17 13:30 (Tylenol) 650 mg Q4H PRN PO 01/10/17 13:45 (Zofran Inj) 4 mg Q6H PRN IV 01/10/17 13:45 (Rosanna-Colace) 1 tab BID PRN PO 01/10/17 13:45 (Restoril) 15 mg HS PRN PO 01/10/17 13:45 (Apresoline Inj) 20 mg Q4H PRN IV PUSH 01/10/17 13:45 (Nitrostat Sl) 0.4 mg Q5M PRN SL 01/10/17 14:00 (Cardizem) 60 mg Q6HR PO 01/10/17 18:00 01/12/17 11:01 (Ecotrin Ec) 325 mg DAILY PO 01/11/17 09:00 01/12/17 09:50 (Lanoxin) 0.125 mg DAILY PO 01/12/17 09:00 01/12/17 09:00 Miscellaneous Information ALL NURSING DEPARTME... UNSCH PRN .XX 01/11/17 17:02 01/12/17 17:01 Vital Signs / I&O Vital Signs Date Time Temp Pulse Resp B/P Pulse Ox O2 Delivery O2 Flow Rate FiO2 01/12/17 09:00 86 01/12/17 08:00 80 01/12/17 07:00 98.2 90 16 13/33 93 01/12/17 07:00 90 01/12/17 07:00 Room Air 01/12/17 06:00 84 01/12/17 05:10 77 01/12/17 04:19 71 01/12/17 03:17 96 Nasal Cannula 1.00 21 01/12/17 03:16 97.8 81 16 137/60 96 01/12/17 03:13 83 01/12/17 02:00 90 01/12/17 01:06 80 01/12/17 00:00 90 01/11/17 23:00 78 01/11/17 23:00 98.5 105 16 145/68 94 01/11/17 23:00 94 Nasal Cannula 1.00 01/11/17 22:00 82 01/11/17 21:00 74 01/11/17 20:00 94 01/11/17 19:00 97 Nasal Cannula 2.00 01/11/17 19:00 97.8 85 18 123/73 97 01/11/17 19:00 102 01/11/17 18:00 90 01/11/17 17:30 97.7 130 16 142/92 97 01/11/17 17:30 109 16 137/63 95 Nasal Cannula 3 01/11/17 17:15 110 17 142/59 95 Nasal Cannula 3 01/11/17 17:04 97.2 104 15 127/70 92 Nasal Cannula 3 01/11/17 17:00 120 01/11/17 16:00 84 01/11/17 15:00 92 Nasal Cannula 2.00 01/11/17 15:00 88 01/11/17 15:00 97.7 91 20 90 01/11/17 14:18 82 01/11/17 13:00 98 01/11/17 12:00 108 01/11/17 12:00 98.0 108 20 126/78 94 I/O 01/11/17 01/11/17 01/11/17 01/12/1701/12/17 5/20/17 07:00 15:00 23:00 07:00 15:00 23:00 Intake Total 480 ml 1450 ml 553 ml Output Total 750 ml 600 ml 1000 ml Balance -270 ml 850 ml -447 ml Intake Oral 480 ml 100 ml 480 ml IV Total 1100 ml 73 ml Other 250 ml Output Urine Total 750 ml 600 ml 1000 ml # Voids 3 # Bowel Movements 0 Physical Exam GENERAL: Well developed, well nourished. No acute distress. HEENT: Jugular venous pressure is normal. CHEST: Lungs clear to auscultation bilaterally. Unlabored respiratory effort. CARDIAC: irregular rate and rhythm without S3, S4, or murmur. ABDOMEN: Soft, nontender, no hepatosplenomegaly. Bowel sounds present. EXTREMITIES: No clubbing, cyanosis, or edema. Laboratory Laboratory Tests Test 01/11/17 13:46 Prothrombin Time 13.3 SEC Prothromb Time International 1.2 RATIO Ratio Assessment and Plan Assessment and Plan AF- fair rate control, some RVR on both IV and PO CHADS VASC= 3, CV event rate 3-6% or 1/20 off meds -discussed extensively with pt and family - no prescription coverage so I suggested coumadin - they are not sure they want to start that here, they are aware of the CV event rate off meds -consider d/c in am if HR controlled off IV ezt Christy Zimmerman MD January 12, 2017 11:14
[2017-01-12 11:33] LABS: AUTOMATED NEUTROPHIL # 4.9 TH/MM3 (1.8-7.7); BASOPHIL # 0.1 TH/MM3 (0-0.2); BASOPHIL % 0.8 % (0.0-2.0); EOSINOPHIL # 0.1 TH/MM3 (0-0.4); EOSINOPHIL % 1.9 % (0.0-4.0); HEMATOCRIT 37.1 % (35.0-46.0); HEMO FLAGS DIFF FINAL; LYMPH % 20.5 % (9.0-44.0); LYMPHOCYTE # 1.5 TH/MM3 (1.0-4.8); MEAN CELL VOLUME 85.1 FL (80.0-100.0); MEAN CORPUSCULAR HEMOGLOBIN 27.5 PG (27.0-34.0); MEAN CORPUSCULAR HGB CONC 32.3 % (32.0-36.0); MONO % 9.4 % (0.0-8.0); NEUT % 67.4 % (16.0-70.0); PLATELET COUNT 161 TH/MM3 (150-450); RED BLOOD COUNT 4.36 MIL/MM3 (4.00-5.30); RED CELL DISTRIBUTION WIDTH 14.8 % (11.6-17.2); WHITE BLOOD COUNT 7.2 TH/MM3 (4.0-11.0)
[2017-01-12 11:38] LABS: INTERNATIONAL NORMALIZED RATIO 1.2 RATIO; PROTHROMBIN TIME - PATIENT 13.1 SEC (9.8-11.6)
[2017-01-12 11:59] LABS: ALT (GPT) 158 U/L (10-53); ANION GAP 9 MEQ/L (5-15); AST (GOT) 74 U/L (15-37); BICARBONATE 27.9 MEQ/L (21.0-32.0); BLOOD UREA NITROGEN 10 MG/DL (7-18); CHLORIDE 105 MEQ/L (98-107); GLOMERULAR FILTRATION RATE 45 ML/MIN (>89); POTASSIUM 3.6 MEQ/L (3.5-5.1); SODIUM (NA) 142 MEQ/L (136-145)
[2017-01-12 12:16] LABS: ALKALINE PHOSPHATASE 229 U/L (45-117); TOTAL BILIRUBIN ADULT 4.3 MG/DL (0.2-1.0)
--- NOTE | 2017-01-12 13:23 | HHI.PR ---
Subjective Remarks Patient seen for follow up cholecystitis. 01/12/17-patient seen this AM. No acute events overnight. Vitals are essentially WNL. Satting well on room air. Only complaint this AM is "feeling weak" after procedure yesterday. Wants to try walking around the halls today. Was able to ambulate without assistance yesterday, but did report this was difficult. Denies any CP, SOB, ab pain, N/V, or F/C. Objective Vitals Vital Signs Date Time Temp Pulse Resp B/P Pulse Ox O2 Delivery O2 Flow Rate FiO2 01/12/17 09:00 86 01/12/17 08:00 80 01/12/17 07:00 98.2 90 16 13/33 93 01/12/17 07:00 90 01/12/17 07:00 Room Air 01/12/17 06:00 84 01/12/17 05:10 77 01/12/17 04:19 71 01/12/17 03:17 96 Nasal Cannula 1.00 21 01/12/17 03:16 97.8 81 16 137/60 96 01/12/17 03:13 83 01/12/17 02:00 90 01/12/17 01:06 80 01/12/17 00:00 90 01/11/17 23:00 78 01/11/17 23:00 98.5 105 16 145/68 94 01/11/17 23:00 94 Nasal Cannula 1.00 01/11/17 22:00 82 01/11/17 21:00 74 01/11/17 20:00 94 01/11/17 19:00 97 Nasal Cannula 2.00 01/11/17 19:00 97.8 85 18 123/73 97 01/11/17 19:00 102 01/11/17 18:00 90 01/11/17 17:30 97.7 130 16 142/92 97 01/11/17 17:30 109 16 137/63 95 Nasal Cannula 3 01/11/17 17:15 110 17 142/59 95 Nasal Cannula 3 01/11/17 17:04 97.2 104 15 127/70 92 Nasal Cannula 3 01/11/17 17:00 120 01/11/17 16:00 84 01/11/17 15:00 92 Nasal Cannula 2.00 01/11/17 15:00 88 01/11/17 15:00 97.7 91 20 90 01/11/17 14:18 82 I/O 01/11/17 01/11/17 01/11/17 01/12/17 01/12/17 01/12/17 07:00 15:00 23:00 07:00 15:00 23:00 Intake Total 480 ml 1450 ml 553 ml Output Total 750 ml 600 ml 1000 ml Balance -270 ml 850 ml -447 ml Intake Oral 480 ml 100 ml 480 ml IV Total 1100 ml 73 ml Other 250 ml Output Urine Total 750 ml 600 ml 1000 ml # Voids 3 # Bowel Movements 0 Result Diagram: 01/12/17 1122 01/12/17 1122 Objective Remarks GENERAL: NAD SKIN: Warm and dry. Mild jaundice, limited to face. HEAD: Normocephalic. EYES: No scleral icterus. No injection or drainage. NECK: Supple, trachea midline. No JVD or lymphadenopathy. CARDIOVASCULAR: irregularly, irregular rhythm. No murmurs. RESPIRATORY: Breath sounds equal bilaterally. No accessory muscle use. CTAB. No adventitious sounds. GASTROINTESTINAL: Abdomen soft, non-tender, nondistended. MUSCULOSKELETAL: No cyanosis, or edema. BACK: Nontender without obvious deformity. No CVA tenderness. A/P Problem List: (1) Cholecystitis ICD Code: K81.9 Status: Acute (2) Atrial fibrillation with RVR ICD Code: I48.91 Status: Acute (3) Chest pain ICD Code: R07.9 Status: Acute (4) Elevated blood pressure reading ICD Code: R03.0 Status: Acute (5) Transaminitis ICD Code: R74.0 Status: Acute Assessment and Plan 81 year-old female with Atrial fibrillation rapid ventricular response -ACS ruled out per protocol with serial cardiac enzyme and EKGs -THYROID dysfunction ruled out with normal TSH and free T4 -Cont PO cardizem + dig. -2-D echo c/w moderate LVH. Normal EF. -Aspirin -Cholesterol 169 with LDL 125. Ten year calculated risk 30%. Technically out of statin benefit group 2/2 age >75. Defer to cards. Choledocholithiasis -s/p ERCP 01/11. Showed choledocholithiasis, cholangitis. S/p sphincterotomy, stent placement. Acute cholecystitis -Status post lap cholecystectomy with IOC -Continue zosyn (01/10-) -Management per general surgery Atypical chest pressure -Resolved -ACS ruled out per protocol with serial cardiac enzyme and EKGs Elevated BP without history of hypertension -Currently normotensive. Cont PRN hydralazine. Transaminitis -Likely secondary to choledocholithiasis -LFTs amd bilirubin are trending down -Hepatitis panel negative -Continue to monitor CMP -Gastroenterology follow-up DVT prophylaxis -Bilateral SCDs Carson Prince MD R3 January 12, 2017 13:23
--- NOTE | 2017-01-12 16:52 | HHI.PR ---
Subjective Subjective Notes Sitting up in chair, having hair washed by her daughter. Denies abdominal pain. Tolerated two meals since ERCP without trouble. Objective Vitals/I&O Vital Signs Date Time Temp Pulse Resp B/P Pulse Ox O2 Delivery O2 Flow Rate FiO2 01/12/17 16:00 89 01/12/17 11:00 98.0 16 139/65 95 01/12/17 11:00 Room Air 01/12/17 03:17 1.00 21 Labs Laboratory Tests Test 01/12/17 11:22 White Blood Count 7.2 Red Blood Count 4.36 Hemoglobin 12.0 Hematocrit 37.1 Mean Corpuscular Volume 85.1 Mean Corpuscular Hemoglobin 27.5 Mean Corpuscular Hemoglobin 32.3 Concent Red Cell Distribution Width 14.8 Platelet Count 161 Mean Platelet Volume 9.7 Neutrophils (%) (Auto) 67.4 Lymphocytes (%) (Auto) 20.5 Monocytes (%) (Auto) 9.4 Eosinophils (%) (Auto) 1.9 Basophils (%) (Auto) 0.8 Neutrophils # (Auto) 4.9 Lymphocytes # (Auto) 1.5 Monocytes # (Auto) 0.7 Eosinophils # (Auto) 0.1 Basophils # (Auto) 0.1 CBC Comment DIFF FINAL Differential Comment Prothrombin Time 13.1 Prothromb Time International 1.2 Ratio Sodium Level 142 Potassium Level 3.6 Chloride Level 105 Carbon Dioxide Level 27.9 Anion Gap 9 Blood Urea Nitrogen 10 Creatinine 1.17 Estimat Glomerular Filtration 45 Rate Random Glucose 105 Calcium Level 8.8 Total Bilirubin 4.3 Aspartate Amino Transf 74 (AST/SGOT) Alanine Aminotransferase 158 (ALT/SGPT) Alkaline Phosphatase 229 Total Protein 6.5 Albumin 2.6 Narrative Exam No exam performed A/P Assessment and Plan s/p lap christian, ERCP and stent. Afib with RVR. Home when OK with cardiology. Follow up with surgeon and GI in [place]. Yoan Zapien MD January 12, 2017 16:52
--- NOTE | 2017-01-12 18:41 | HHI.GIFU ---
Subjective Remarks Pt reports feeling much better after her ERCP. No abdominal pain. Eating food. Bilirubin is dropping. Today 4.3 down from 7 yesterday. LFT are also improving. Denies fever. Objective Vitals I&O Vital Signs Date Time Temp Pulse Resp B/P Pulse Ox O2 Delivery O2 Flow Rate FiO2 01/12/17 18:02 79 01/12/17 17:00 95 01/12/17 16:00 89 01/12/17 15:00 97.9 82 16 159/73 95 01/12/17 15:00 95 Room Air 01/12/17 14:00 84 01/12/17 13:00 90 01/12/17 12:00 80 01/12/17 11:00 98.0 93 16 139/65 95 01/12/17 11:00 80 01/12/17 11:00 Room Air 01/12/17 10:00 88 01/12/17 09:00 86 01/12/17 08:00 80 01/12/17 07:00 80 01/12/17 07:00 98.2 90 16 13/33 93 01/12/17 07:00 90 01/12/17 07:00 Room Air 01/12/17 06:00 84 01/12/17 05:10 77 01/12/17 04:19 71 01/12/17 03:17 96 Nasal Cannula 1.00 21 01/12/17 03:16 97.8 81 16 137/60 96 01/12/17 03:13 83 01/12/17 02:00 90 01/12/17 01:06 80 01/12/17 00:00 90 01/11/17 23:00 78 01/11/17 23:00 98.5 105 16 145/68 94 01/11/17 23:00 94 Nasal Cannula 1.00 01/11/17 22:00 82 01/11/17 21:00 74 01/11/17 20:00 94 01/11/17 19:00 97 Nasal Cannula 2.00 01/11/17 19:00 97.8 85 18 123/73 97 01/11/17 19:00 102 I/O 01/11/17 01/11/17 01/11/17 01/12/17 01/12/17 01/12/17 07:00 15:00 23:00 07:00 15:00 23:00 Intake Total 480 ml 1450 ml 553 ml 1013 ml Output Total 750 ml 600 ml 1000 ml 550 ml Balance -270 ml 850 ml -447 ml 463 ml Intake Oral 480 ml 100 ml 480 ml 960 ml IV Total 1100 ml 73 ml 53 ml Other 250 ml Output Urine Total 750 ml 600 ml 1000 ml 550 ml # Voids 3 # Bowel Movements 0 0 Laboratory Laboratory Tests Test 01/12/17 11:22 White Blood Count 7.2 Red Blood Count 4.36 Hemoglobin 12.0 Hematocrit 37.1 Mean Corpuscular Volume 85.1 Mean Corpuscular Hemoglobin 27.5 Mean Corpuscular Hemoglobin 32.3 Concent Red Cell Distribution Width 14.8 Platelet Count 161 Mean Platelet Volume 9.7 Neutrophils (%) (Auto) 67.4 Lymphocytes (%) (Auto) 20.5 Monocytes (%) (Auto) 9.4 Eosinophils (%) (Auto) 1.9 Basophils (%) (Auto) 0.8 Neutrophils # (Auto) 4.9 Lymphocytes # (Auto) 1.5 Monocytes # (Auto) 0.7 Eosinophils # (Auto) 0.1 Basophils # (Auto) 0.1 CBC Comment DIFF FINAL Differential Comment Prothrombin Time 13.1 Prothromb Time International 1.2 Ratio Sodium Level 142 Potassium Level 3.6 Chloride Level 105 Carbon Dioxide Level 27.9 Anion Gap 9 Blood Urea Nitrogen 10 Creatinine 1.17 Estimat Glomerular Filtration 45 Rate Random Glucose 105 Calcium Level 8.8 Total Bilirubin 4.3 Aspartate Amino Transf 74 (AST/SGOT) Alanine Aminotransferase 158 (ALT/SGPT) Alkaline Phosphatase 229 Total Protein 6.5 Albumin 2.6 Physical Exam HEENT: Normocephalic; atraumatic; jaundice NECK: Neck is supple, CHEST: CTA CARDIAC: Irregular, HR 100. ABDOMEN: Soft, mildly distended, mild tenderness; no hepatosplenomegaly; bowel sounds are present in all four quadrants. EXTREMITIES: No clubbing, cyanosis, or edema. SKIN: Normal; no rash; jaundice. [employer] OPERATOR: No focal deficits; alert and oriented times three. Assessment and Plan Plan ASSESSMENT: - Elevated LFTs. Pt came in with acute cholecystitis. Abdomen/Pelvis CT ()-----> 1. The gallbladder is moderately distended with thickening of the gallbladder wall and surrounding inflammatory changes in the adjacent mesenteric fat. These findings suggest acute cholecystitis. 2. Mild dilatation of the biliary ducts. The common bile duct does not appear to be dilated. 3. A few scattered diverticula in the sigmoid colon without inflammatory changes. MRCP (01/07/17)----> The gallbladder is distended and there are multiple stones in the gallbladder. There is thickening of the gallbladder wall. No definite biliary tract obstruction is seen. S/P laparoscopic cholecystectomy with IOC () with Dr. Garcia. Elevated liver function tests etiology unclear as far as having biliary ductal stones appeared to be trending down but the bilirubin continues to lag behind at this point. Plan was for ERCP yesterday, but she developed new onset atrial fibrillation and therefore this was cancelled. Cardiology consulted, started on Cardizem drip. Rate controlled at rest, goes to low teens on exertion. Spoke with Dr. Johnson and he has cleared patient for ERCP today. Transaminases continue to improve, but patient's bilirubin continues to rise- up to 7.4, AST 96, ALT 197, Alk phosph 197. Will plan for ERCP today. NPO. - Atrial fibrillation. Cardizem gtt. Dr. Johnson following. Cleared for ERCP today. -ERCP successful, stone removed, stent placed. PLAN: OK to discharge tomorrow if remains stable. Scottie Villa MD January 12, 2017 18:41
[2017-01-13] VITALS (20 sets, daily range): BP systolic 141–144; BP diastolic 69–72; PULSE 72–114; RESP 16; TEMP 97.6–98.3; O2SAT 93–98
[2017-01-13] MEDS: PIPERACIL-TAZO 3.375 GM PREMIX 50 ML IV SCH ×2 (00:23→11:04)
[2017-01-13] MEDS: DILTIAZEM HCL 60 MG TAB PO SCH ×2 (00:23→06:08)
[2017-01-13 08:17] LABS: AUTOMATED NEUTROPHIL # 4.4 TH/MM3 (1.8-7.7); BASOPHIL # 0.1 TH/MM3 (0-0.2); EOSINOPHIL # 0.2 TH/MM3 (0-0.4); EOSINOPHIL % 3.3 % (0.0-4.0); HEMATOCRIT 37.3 % (35.0-46.0); HEMO FLAGS DIFF FINAL; LYMPH % 24.9 % (9.0-44.0); LYMPHOCYTE # 1.8 TH/MM3 (1.0-4.8); MEAN CELL VOLUME 85.6 FL (80.0-100.0); MEAN CORPUSCULAR HEMOGLOBIN 27.4 PG (27.0-34.0); MONO % 8.4 % (0.0-8.0); NEUT % 62.4 % (16.0-70.0); PLATELET COUNT 171 TH/MM3 (150-450); RED BLOOD COUNT 4.35 MIL/MM3 (4.00-5.30); RED CELL DISTRIBUTION WIDTH 15.3 % (11.6-17.2)
[2017-01-13 08:35] LABS: ALT (GPT) 153 U/L (10-53); ANION GAP 10 MEQ/L (5-15); AST (GOT) 82 U/L (15-37); BICARBONATE 26.1 MEQ/L (21.0-32.0); BLOOD UREA NITROGEN 11 MG/DL (7-18); CHLORIDE 104 MEQ/L (98-107); GLOMERULAR FILTRATION RATE 47 ML/MIN (>89); POTASSIUM 3.5 MEQ/L (3.5-5.1); SODIUM (NA) 140 MEQ/L (136-145)
[2017-01-13 08:37] LABS: ALKALINE PHOSPHATASE 212 U/L (45-117); TOTAL BILIRUBIN ADULT 3.3 MG/DL (0.2-1.0)
--- NOTE | 2017-01-13 09:52 | PD.CARD.PN ---
Subjective Subjective Remarks Pt without complaints, declines anticoagulation Objective Medications Current Medications Medications (Trade) Dose Ordered Sig/Charity Route Start Time Stop Time Status Last Admin (Zofran Inj) 4 mg Q6H PRN IV 01/07/17 11:15 01/07/17 21:06 (NS Flush) 2 ml BID IV FLUSH 01/07/17 21:00 01/12/17 21:00 (NS Flush) 2 ml UNSCH PRN IVF 01/07/17 11:15 (Morphine Inj) 2 mg Q3H PRN IV PUSH 01/07/17 11:15 01/08/17 00:04 (Aromas 7.5-325 Mg) 1 tab Q4H PRN PO 01/08/17 12:00 01/09/17 02:52 Acetaminophen/ Hydrocodone Bitart 2 tab 2 tab Q4H PRN PO 01/08/17 12:00 Piperacillin Sod/ Tazobactam Sod 50 ml @ 100 mls/hr Q8H IV 01/10/17 09:00 01/13/17 00:23 (Cardizem Inj/NS Inj) 125 ml @ 0 mls/hr TITRATE IV 01/10/17 13:00 01/11/17 14:29 (Narcan Inj) 0.4 mg UNSCH PRN IV 01/10/17 13:30 (Tylenol) 650 mg Q4H PRN PO 01/10/17 13:45 (Zofran Inj) 4 mg Q6H PRN IV 01/10/17 13:45 (Rosanna-Colace) 1 tab BID PRN PO 01/10/17 13:45 01/13/17 06:08 (Restoril) 15 mg HS PRN PO 01/10/17 13:45 (Apresoline Inj) 20 mg Q4H PRN IV PUSH 01/10/17 13:45 (Nitrostat Sl) 0.4 mg Q5M PRN SL 01/10/17 14:00 (Cardizem) 60 mg Q6HR PO 01/10/17 18:00 01/13/17 06:08 (Ecotrin Ec) 325 mg DAILY PO 01/11/17 09:00 01/12/17 09:50 (Lanoxin) 0.125 mg DAILY PO 01/12/17 09:00 01/12/17 09:00 Vital Signs / I&O Vital Signs Date Time Temp Pulse Resp B/P Pulse Ox O2 Delivery O2 Flow Rate FiO2 01/13/17 07:48 97.6 87 16 144/69 94 01/13/17 07:40 107 01/13/17 06:00 108 01/13/17 05:00 77 01/13/17 04:00 87 01/13/17 03:20 98.3 85 16 141/72 93 01/13/17 03:00 72 01/13/17 02:00 76 01/13/17 01:00 83 01/13/17 00:00 114 01/12/17 23:50 97 Room Air 01/12/17 23:50 98.2 98 16 139/71 96 01/12/17 23:00 85 01/12/17 22:00 90 01/12/17 21:00 94 01/12/17 20:00 82 01/12/17 19:47 95 2.00 01/12/17 19:45 97.8 88 16 137/69 97 01/12/17 19:45 97 Room Air 01/12/17 19:00 108 01/12/17 18:02 79 01/12/17 17:00 95 01/12/17 16:00 89 01/12/17 15:00 97.9 82 16 159/73 95 01/12/17 15:00 95 Room Air 01/12/17 14:00 84 01/12/17 13:00 90 01/12/17 12:00 80 01/12/17 11:00 98.0 93 16 139/65 95 01/12/17 11:00 80 01/12/17 11:00 Room Air 01/12/17 10:00 88 I/O 01/12/17 01/12/17 01/12/17 01/13/17 01/13/17 01/13/17 07:00 15:00 23:00 07:00 15:00 23:00 Intake Total 553 ml 1013 ml 530 ml Output Total 1000 ml 550 ml 2150 ml Balance -447 ml 463 ml -1620 ml Intake Oral 480 ml 960 ml 480 ml IV Total 73 ml 53 ml 50 ml Output Urine Total 1000 ml 550 ml 2150 ml # Bowel Movements 0 0 Physical Exam GENERAL: Well developed, well nourished. No acute distress. HEENT: Jugular venous pressure is normal. CHEST: Lungs clear to auscultation bilaterally. Unlabored respiratory effort. CARDIAC: irregular rate and rhythm without S3, S4, or murmur. ABDOMEN: Soft, nontender, no hepatosplenomegaly. Bowel sounds present. EXTREMITIES: No clubbing, cyanosis, or edema. Laboratory Laboratory Tests Test 01/12/17 01/13/17 11:22 07:08 White Blood Count 7.2 TH/MM3 7.0 TH/MM3 Red Blood Count 4.36 MIL/MM3 4.35 MIL/MM3 Hemoglobin 12.0 GM/DL 11.9 GM/DL Hematocrit 37.1 % 37.3 % Mean Corpuscular Volume 85.1 FL 85.6 FL Mean Corpuscular Hemoglobin 27.5 PG 27.4 PG Mean Corpuscular Hemoglobin 32.3 % 32.0 % Concent Red Cell Distribution Width 14.8 % 15.3 % Platelet Count 161 TH/MM3 171 TH/MM3 Mean Platelet Volume 9.7 FL 10.7 FL Neutrophils (%) (Auto) 67.4 % 62.4 % Lymphocytes (%) (Auto) 20.5 % 24.9 % Monocytes (%) (Auto) 9.4 % 8.4 % Eosinophils (%) (Auto) 1.9 % 3.3 % Basophils (%) (Auto) 0.8 % 1.0 % Neutrophils # (Auto) 4.9 TH/MM3 4.4 TH/MM3 Lymphocytes # (Auto) 1.5 TH/MM3 1.8 TH/MM3 Monocytes # (Auto) 0.7 TH/MM3 0.6 TH/MM3 Eosinophils # (Auto) 0.1 TH/MM3 0.2 TH/MM3 Basophils # (Auto) 0.1 TH/MM3 0.1 TH/MM3 CBC Comment DIFF FINAL DIFF FINAL Differential Comment Prothrombin Time 13.1 SEC Prothromb Time International 1.2 RATIO Ratio Sodium Level 142 MEQ/L 140 MEQ/L Potassium Level 3.6 MEQ/L 3.5 MEQ/L Chloride Level 105 MEQ/L 104 MEQ/L Carbon Dioxide Level 27.9 MEQ/L 26.1 MEQ/L Anion Gap 9 MEQ/L 10 MEQ/L Blood Urea Nitrogen 10 MG/DL 11 MG/DL Creatinine 1.17 MG/DL 1.12 MG/DL Estimat Glomerular Filtration 45 ML/MIN 47 ML/MIN Rate Random Glucose 105 MG/DL 84 MG/DL Calcium Level 8.8 MG/DL 9.1 MG/DL Total Bilirubin 4.3 MG/DL 3.3 MG/DL Aspartate Amino Transf 74 U/L 82 U/L (AST/SGOT) Alanine Aminotransferase 158 U/L 153 U/L (ALT/SGPT) Alkaline Phosphatase 229 U/L 212 U/L Total Protein 6.5 GM/DL 6.7 GM/DL Albumin 2.6 GM/DL 2.7 GM/DL Assessment and Plan Assessment and Plan AF- fair rate control, some RVR this am => increase diltiazem and add lovenox while in hospital CHADS VASC= 3, CV event rate 3-6% or 09/14 off meds -pt declines anticoagulation despite above -Dr Minor to return in Am Christy Zimmerman MD January 13, 2017 09:52
[2017-01-13] MEDS ORDERED: DILTIAZEM HCL 30 MG TAB PO ONE (11:00)
[2017-01-13] MEDS: DIGOXIN 0.125 MG TAB PO SCH (11:02)
[2017-01-13] MEDS: SODIUM CHLORIDE 0.9% FLUSH 10 ML FLUSH IV FLUSH SCH (11:03)
[2017-01-13] MEDS: ASPIRIN EC 325 MG TABEC PO SCH (11:03)
--- NOTE | 2017-01-13 11:54 | HHI.PR ---
Subjective Remarks The patient was seen and examined this am. Family at bedside. Wants to go home. Intermittent tachycardia, cardizem increased by cards. Wants to walk around. States she did get SOB when walking yesterday. She denies CP. Objective Vital Signs Date Time Temp Pulse Resp B/P Pulse Ox O2 Delivery O2 Flow Rate FiO2 01/13/17 10:00 92 01/13/17 09:00 90 01/13/17 08:00 88 01/13/17 07:48 97.6 87 16 144/69 94 01/13/17 07:40 107 01/13/17 06:00 108 01/13/17 05:00 77 01/13/17 04:00 87 01/13/17 03:20 98.3 85 16 141/72 93 01/13/17 03:00 72 01/13/17 02:00 76 01/13/17 01:00 83 01/13/17 00:00 114 01/12/17 23:50 97 Room Air 01/12/17 23:50 98.2 98 16 139/71 96 01/12/17 23:00 85 01/12/17 22:00 90 01/12/17 21:00 94 01/12/17 20:00 82 01/12/17 19:47 95 2.00 01/12/17 19:45 97.8 88 16 137/69 97 01/12/17 19:45 97 Room Air 01/12/17 19:00 108 01/12/17 18:02 79 01/12/17 17:00 95 01/12/17 16:00 89 01/12/17 15:00 97.9 82 16 159/73 95 01/12/17 15:00 95 Room Air 01/12/17 14:00 84 01/12/17 13:00 90 01/12/17 12:00 80 I/O 01/12/17 01/12/17 01/12/17 01/13/17 01/13/17 01/13/17 07:00 15:00 23:00 07:00 15:00 23:00 Intake Total 553 ml 1013 ml 530 ml Output Total 1000 ml 550 ml 2150 ml Balance -447 ml 463 ml -1620 ml Intake Oral 480 ml 960 ml 480 ml IV Total 73 ml 53 ml 50 ml Output Urine Total 1000 ml 550 ml 2150 ml # Bowel Movements 0 0 Result Diagram: 01/13/17 0708 01/13/17 0708 Imaging Last Impressions GI Procedure 01/11/17 0000 Signed Impressions: Service Date/Time: Wednesday, January 11, 2017 15:54 - CONCLUSION: ERCP as above with common bile duct stent placement.. Tahir Kim MD Cholangiogram 01/08/17 0000 Signed Impressions: Service Date/Time: Sunday, January 08, 2017 11:03 - CONCLUSION: No stone identified as above Yoan Cisneros MD Abdomen/Pelvis CT 01/07/17 0932 Signed Impressions: Service Date/Time: Saturday, January 07, 2017 10:26 - CONCLUSION: 1. The gallbladder is moderately distended with thickening of the gallbladder wall and surrounding inflammatory changes in the adjacent mesenteric fat. These findings suggest acute cholecystitis. 2. Mild dilatation of the biliary ducts. The common bile duct does not appear to be dilated. 3. A few scattered diverticula in the sigmoid colon without inflammatory changes. Robbin Rodgers MD Cholangiopancreatography MRI 01/07/17 0000 Signed Impressions: Service Date/Time: Saturday, January 07, 2017 13:20 - CONCLUSION: The gallbladder is distended and there are multiple stones in the gallbladder. There is thickening of the gallbladder wall. No definite biliary tract obstruction is seen. Robbin Rodgers MD Other Results GENERAL: well appearing, NAD, sitting up in chair SKIN: Warm and dry. HEAD: Normocephalic. EYES: No scleral icterus. No injection or drainage. NECK: Supple, trachea midline. No JVD or lymphadenopathy. CARDIOVASCULAR: Irregular rhythm without murmurs, gallops, or rubs. Pulses distant. RESPIRATORY: Breath sounds equal bilaterally. No accessory muscle use. GASTROINTESTINAL: Abdomen soft, non-tender, nondistended. MUSCULOSKELETAL: No cyanosis, or edema. BACK: Nontender without obvious deformity. No CVA tenderness. A/P Problem List: (1) Cholecystitis ICD Code: K81.9 (2) Chest pain ICD Code: R07.9 (3) Transaminitis ICD Code: R74.0 (4) Atrial fibrillation with RVR ICD Code: I48.91 Assessment and Plan 81 year-old female with Atrial fibrillation rapid ventricular response -ACS ruled out per protocol with serial cardiac enzyme and EKGs -THYROID dysfunction ruled out with normal TSH and free T4 - Cardizem increased + dig, Lovenox while in hospital declines anticoagulation - 2-D echo c/w moderate LVH. Normal EF. - Aspirin - Cholesterol 169 with LDL 125. Ten year calculated risk 30%. Technically out of statin benefit group 2/2 age >75. Defer to cards. Choledocholithiasis -s/p ERCP 01/11. Showed choledocholithiasis, cholangitis. S/p sphincterotomy, stent placement. - Per GI may d/c tomorrow if remains stable Acute cholecystitis -Status post lap cholecystectomy with IOC -Continue zosyn (01/10-) -Management per general surgery Atypical chest pressure -Resolved -ACS ruled out per protocol with serial cardiac enzyme and EKGs Elevated BP without history of hypertension -Currently normotensive. Cont PRN hydralazine. Transaminitis -Likely secondary to choledocholithiasis -LFTs amd bilirubin are trending down -Hepatitis panel negative -Continue to monitor CMP -Gastroenterology follow-up DVT prophylaxis -Bilateral SCDs Discharge Planning Cleared from GI standpoint for tomorrow if remains stable. Pending cardiac clearance. Erin Chung MD R3 January 13, 2017 11:54
--- NOTE | 2017-01-13 12:04 | HHI.GIFU ---
Subjective Remarks Pt OOB to chair, visiting with family, asking to go home. She says she feels better, no pain, n/v, diarrhea, blood in stool. Objective Vitals I&O Vital Signs Date Time Temp Pulse Resp B/P Pulse Ox O2 Delivery O2 Flow Rate FiO2 01/13/17 10:00 92 01/13/17 09:00 90 01/13/17 08:00 88 01/13/17 07:48 97.6 87 16 144/69 94 01/13/17 07:40 107 01/13/17 06:00 108 01/13/17 05:00 77 01/13/17 04:00 87 01/13/17 03:20 98.3 85 16 141/72 93 01/13/17 03:00 72 01/13/17 02:00 76 01/13/17 01:00 83 01/13/17 00:00 114 01/12/17 23:50 97 Room Air 01/12/17 23:50 98.2 98 16 139/71 96 01/12/17 23:00 85 01/12/17 22:00 90 01/12/17 21:00 94 01/12/17 20:00 82 01/12/17 19:47 95 2.00 01/12/17 19:45 97.8 88 16 137/69 97 01/12/17 19:45 97 Room Air 01/12/17 19:00 108 01/12/17 18:02 79 01/12/17 17:00 95 01/12/17 16:00 89 01/12/17 15:00 97.9 82 16 159/73 95 01/12/17 15:00 95 Room Air 01/12/17 14:00 84 01/12/17 13:00 90 01/12/17 12:00 80 I/O 01/12/17 01/12/17 01/12/17 01/13/17 01/13/17 01/13/17 07:00 15:00 23:00 07:00 15:00 23:00 Intake Total 553 ml 1013 ml 530 ml Output Total 1000 ml 550 ml 2150 ml Balance -447 ml 463 ml -1620 ml Intake Oral 480 ml 960 ml 480 ml IV Total 73 ml 53 ml 50 ml Output Urine Total 1000 ml 550 ml 2150 ml # Bowel Movements 0 0 Laboratory Laboratory Tests Test 5/21/17 07:08 White Blood Count 7.0 Red Blood Count 4.35 Hemoglobin 11.9 Hematocrit 37.3 Mean Corpuscular Volume 85.6 Mean Corpuscular Hemoglobin 27.4 Mean Corpuscular Hemoglobin 32.0 Concent Red Cell Distribution Width 15.3 Platelet Count 171 Mean Platelet Volume 10.7 Neutrophils (%) (Auto) 62.4 Lymphocytes (%) (Auto) 24.9 Monocytes (%) (Auto) 8.4 Eosinophils (%) (Auto) 3.3 Basophils (%) (Auto) 1.0 Neutrophils # (Auto) 4.4 Lymphocytes # (Auto) 1.8 Monocytes # (Auto) 0.6 Eosinophils # (Auto) 0.2 Basophils # (Auto) 0.1 CBC Comment DIFF FINAL Differential Comment Sodium Level 140 Potassium Level 3.5 Chloride Level 104 Carbon Dioxide Level 26.1 Anion Gap 10 Blood Urea Nitrogen 11 Creatinine 1.12 Estimat Glomerular Filtration 47 Rate Random Glucose 84 Calcium Level 9.1 Total Bilirubin 3.3 Aspartate Amino Transf 82 (AST/SGOT) Alanine Aminotransferase 153 (ALT/SGPT) Alkaline Phosphatase 212 Total Protein 6.7 Albumin 2.7 Imaging Last Impressions GI Procedure 01/11/17 0000 Signed Impressions: Service Date/Time: Wednesday, January 11, 2017 15:54 - CONCLUSION: ERCP as above with common bile duct stent placement.. Tahir Kim MD Cholangiogram 01/08/17 0000 Signed Impressions: Service Date/Time: Sunday, January 08, 2017 11:03 - CONCLUSION: No stone identified as above Yoan Cisneros MD Abdomen/Pelvis CT 01/07/17 0932 Signed Impressions: Service Date/Time: Saturday, January 07, 2017 10:26 - CONCLUSION: 1. The gallbladder is moderately distended with thickening of the gallbladder wall and surrounding inflammatory changes in the adjacent mesenteric fat. These findings suggest acute cholecystitis. 2. Mild dilatation of the biliary ducts. The common bile duct does not appear to be dilated. 3. A few scattered diverticula in the sigmoid colon without inflammatory changes. Robbin Rodgers MD Cholangiopancreatography MRI 01/07/17 0000 Signed Impressions: Service Date/Time: Saturday, January 07, 2017 13:20 - CONCLUSION: The gallbladder is distended and there are multiple stones in the gallbladder. There is thickening of the gallbladder wall. No definite biliary tract obstruction is seen. Robbin Rodgers MD Physical Exam HEENT: Normocephalic; atraumatic; + icterus NECK: Neck is supple, CHEST: CTA CARDIAC: irregularly irregular, rate controlled at 80. ABDOMEN: Soft, nondistended, mild tenderness; no hepatosplenomegaly; bowel sounds are present in all four quadrants. EXTREMITIES: No clubbing, cyanosis, or edema. SKIN: Normal; no rash; mild jaundice. HOSPICE SPIRITUAL CARE COORDINATOR: No focal deficits; alert and oriented times three. Assessment and Plan Plan ASSESSMENT: - Elevated LFTs. trending down, tbili dropping. Pt came in with acute cholecystitis. s/p ERCP . Abdomen/Pelvis CT (01/07/17)-----> 1. The gallbladder is moderately distended with thickening of the gallbladder wall and surrounding inflammatory changes in the adjacent mesenteric fat. These findings suggest acute cholecystitis. 2. Mild dilatation of the biliary ducts. The common bile duct does not appear to be dilated. 3. A few scattered diverticula in the sigmoid colon without inflammatory changes. MRCP (01/07/17)----> The gallbladder is distended and there are multiple stones in the gallbladder. There is thickening of the gallbladder wall. No definite biliary tract obstruction is seen. S/P laparoscopic cholecystectomy with IOC () with Dr. Garcia. Elevated liver function tests etiology unclear as far as having biliary ductal stones appeared to be trending down but the bilirubin continues to lag behind at this point. Plan was for ERCP yesterday, but she developed new onset atrial fibrillation and therefore this was cancelled. Cardiology consulted, started on Cardizem. - Atrial fibrillation. Cardizem po. Dr. Johnson following. -ERCP successful, stone removed, stent placed. PLAN: - JOLLY - f/u with PCP - f/u with GI as outpt to discuss stent removal - okay to d/c from GI standpoint This pt seen by myself and Dr Villa and this note is written on his behalf Sandra Mari [employer] January 13, 2017 12:04
[2017-01-13] MEDS: ENOXAPARIN SODIUM 60 MG/0.6 ML SYRINGE SQ SCH ×3 (12:15→12:53)
[2017-01-13] MEDS ORDERED: DILT90TA PO (15:07)
[2017-01-13] MEDS ORDERED: DIGO0.12 PO (15:08)
--- NOTE | 2017-01-13 15:13 | HHI.PR ---
Subjective Subjective Notes Feels better, less yellow. Tolerating diet Objective Vitals/I&O Vital Signs Date Time Temp Pulse Resp B/P Pulse Ox O2 Delivery O2 Flow Rate FiO2 01/13/17 14:51 89 01/13/17 13:01 98 01/13/17 12:06 97.6 16 144/69 01/12/17 23:50 Room Air 01/12/17 19:47 2.00 01/12/17 03:17 21 Labs Laboratory Tests Test 01/13/17 07:08 White Blood Count 7.0 Red Blood Count 4.35 Hemoglobin 11.9 Hematocrit 37.3 Mean Corpuscular Volume 85.6 Mean Corpuscular Hemoglobin 27.4 Mean Corpuscular Hemoglobin 32.0 Concent Red Cell Distribution Width 15.3 Platelet Count 171 Mean Platelet Volume 10.7 Neutrophils (%) (Auto) 62.4 Lymphocytes (%) (Auto) 24.9 Monocytes (%) (Auto) 8.4 Eosinophils (%) (Auto) 3.3 Basophils (%) (Auto) 1.0 Neutrophils # (Auto) 4.4 Lymphocytes # (Auto) 1.8 Monocytes # (Auto) 0.6 Eosinophils # (Auto) 0.2 Basophils # (Auto) 0.1 CBC Comment DIFF FINAL Differential Comment Sodium Level 140 Potassium Level 3.5 Chloride Level 104 Carbon Dioxide Level 26.1 Anion Gap 10 Blood Urea Nitrogen 11 Creatinine 1.12 Estimat Glomerular Filtration 47 Rate Random Glucose 84 Calcium Level 9.1 Total Bilirubin 3.3 Aspartate Amino Transf 82 (AST/SGOT) Alanine Aminotransferase 153 (ALT/SGPT) Alkaline Phosphatase 212 Total Protein 6.7 Albumin 2.7 Lungs: Clear Abdomen: Non-distended, Non-tender Narrative Exam Steristrips dry and intact; no erythema A/P Assessment and Plan 81 year old female s/p lap crhistian with decreasing bilirubin to 3.3 after ERCP and stent placement. -HR stable---Cardiology following - at bedside; updated on plan of care F/U my office Home on diltiazem and digoxin with ASA per Dr. Johnson. Mp Garcia MD January 13, 2017 15:13
[2017-01-13] MEDS ORDERED: DILTIAZEM HCL 90 MG TAB PO SCH (18:00)
== END 2017-01-13 16:19 | disposition home or self-care (01) | DRG 419 ==
LOC: PHED 08:53 → PHEDA 11:16 → PH3B 13:55 → HCIS 01-10 11:56
PROVIDERS: ADMIT Surgery Trauma Surgery; ATTEND Surgery Trauma Surgery
PROC: BF131ZZ Fluoroscopy of Gallbladder and Bile Ducts using Low Osmolar Contrast (ICD-10-PCS; 2017-01-08)
PROC: 0FT44ZZ Resection of Gallbladder, Percutaneous Endoscopic Approach (ICD-10-PCS; principal; 2017-01-08 09:41)
PROC: 0F798DZ Dilation of Common Bile Duct with Intraluminal Device, Via Natural or Artificial Opening Endoscopic (ICD-10-PCS; 2017-01-11)
PROC: 0FC98ZZ Extirpation of Matter from Common Bile Duct, Via Natural or Artificial Opening Endoscopic (ICD-10-PCS; 2017-01-11)
PROC: BF101ZZ Fluoroscopy of Bile Ducts using Low Osmolar Contrast (ICD-10-PCS; 2017-01-11)
DX: K80.62 Calculus of gallbladder and bile duct with acute cholecystitis without obstruction (principal); I48.91 Unspecified atrial fibrillation; R07.89 Other chest pain; R74.0 Nonspecific elevation of levels of transaminase and lactic acid dehydrogenase [LDH]; R03.0 Elevated blood-pressure reading, without diagnosis of hypertension; R00.0 Tachycardia, unspecified; I51.7 Cardiomegaly
CPT/HCPCS: 74177; 74181; 74300; 74330; 76377; 80048; 80053; 80061; 80074; 80076; 81001; 82550; 83690; 84484; 85025; 85027; 85610; 88304; 93005; 93306; 96361; 96374; 96375; C1769; C2625; J0171; J0461; J1160; J1610; J1650; J1885; J2270; J2405; J2543; J2710; J3010; J7030; J7040; Q9967